=== PATIENT | female | born 2000 | race Caucasian/White ===

== ENCOUNTER 2018-04-16 22:54 | Inpatient (IN) | payer BC ==
[~2018-04-16] VITALS: Ht 157.5 cm; Wt 63.3 kg
[2018-04-17 01:06] VITALS: Ht 157.5 cm; Wt 63.3 kg
[2018-04-17 02:02] VITALS: BP 109/65; PULSE 101; RESP 16
--- NOTE | 2018-04-17 02:27 | HP ---
Date/Time of Note Date/Time of Note DATE: 04/17/18 TIME: 02:19 Assessment/Plan VTE Prophylaxis Risk score (from Nsg)>0 risk: 6 SCD applied (from Nsg): No Pharmacological prophylaxis: heparin Lines/Catheters IV Catheter Type (from Nrsg): Saline Lock Assessment/Plan Assessment/Plan 17 yo female with no sig medical hx transferred from [facility] for right ankle/foot pain 2/2 tibial fx s/p exercise related injury PLAN pain mgmt Ortho consult additional imaging as needed/per Ortho HPI/ROS Admit Date/Time Admit Date/Time Apr 17, 2018 at 00:18 Hx of Present Illness This is a 17 yo female with no sig medical hx who initially presented to [facility] c/o right ankle pain. She injured herself while [place]whe[place]. Xray showed right tibial fx. fluid/ankle was straightened/suggested and is currently wrapped. She was transferred to [facility] for insurance reasons. . PMH/Family/Social Past Medical History Medical History: other (See HPI) Coded Allergies: No Known Allergy (Unverified , 04/17/18) Past Surgical History Past Surgical Hx: other (See HPI) Family History Significant Family History: no pertinent family hx (See HPI) Social History Alcohol Use: none Smoking Status: Unknown if ever smoked Drug Use: none Exam/Review of Systems Vital Signs Vitals Vital Signs Date Temp Pulse Resp B/P (MAP) Pulse Ox O2 O2 Flow FiO2 Time Delivery Rate 04/17/18 99.0 101 16 109/65 95 02:02 (80) Exam Constitutional: alert, oriented, well developed Head: normocephalic, atraumatic Eyes: EOMI, PERRL Respiratory: clear to auscultation, normal air movement Cardiovascular: regular rate and rhythm, nl pulses Gastrointestinal: soft, non-tender Extremities: other (Right lower extremity is wrapped. Sensation intact on her toes and she is able to wiggle them without any problem) Medications Medications Current Medications IV Flush (NS 3 ml) 3 ml PER PROTOCOL IV ; Start 04/17/18 at 02:30; Status UNV Ondansetron HCl (Zofran Inj) 4 mg Q6H PRN IV NAUSEA AND/OR VOMITING; Start 04/17/18 at 02:30; Status UNV Acetaminophen (Tylenol Tab) 650 mg Q6H PRN PO PAIN LEVEL 1-3 OR FEVER; Start 04/17/18 at 02:30; Status UNV Acetaminophen/ Hydrocodone Bitart ([place] (5/325)) 1 tab Q6H PRN PO MODERATE PAIN LEVEL 4-6; Start 04/17/18 at 02:30; Status UNV Acetaminophen/ Hydrocodone Bitart ([place] (5/325)) 2 tab Q6H PRN PO SEVERE PAIN LEVEL 7-10; Start 04/17/18 at 02:30; Status UNV Heparin Sodium (Porcine) (Heparin (5000 Units/1ml)) 5,000 unit Q12 SC ; Start 04/17/18 at 09:00; Status UNV TIGRE MONTANO MD Apr 17, 2018 02:27
[2018-04-17] MEDS ORDERED: ONDANSETRON 4 MG INJ IV PRN (02:30)
[2018-04-17] MEDS ORDERED: NACL 0.9% 3 ML SYG IV SCH (02:30)
[2018-04-17] MEDS: ACETAMINOPHEN 325 MG TAB PO PRN ×2 (03:16→14:10)
[2018-04-17 08:00] VITALS: BP 98/54; PULSE 97; RESP 17
[2018-04-17] MEDS: HYDROCODONE/APAP (5/325) TAB PO PRN ×2 (09:05→19:35)
[2018-04-17] MEDS: HEPARIN 5,000 UNIT/1 ML VIAL SC SCH ×2 (09:06→23:14)
[2018-04-17] MEDS ORDERED: POTASSIUM CHLORIDE (SR) 20 MEQ TAB PO STA (10:34)
--- NOTE | 2018-04-17 10:54 | PN ---
Date/Time of Note Date/Time of Note DATE: 04/17/18 TIME: 10:51 Assessment/Plan VTE Prophylaxis Risk score (from Ns)>0 risk: 6 SCD applied (from Ns): No SCD contraindicated: other Pharmacological prophylaxis: heparin Lines/Catheters IV Catheter Type (from [facility]): Saline Lock Assessment/Plan Hospital Course SUBJECTIVE: Right foot pain well controlled. OBJECTIVE: Physical Exam General: Adequately build 17 year-old female lying in bed in no apparent distress. HEENT: Normocephalic, atraumatic. Eyes: Anicteric sclerae, conjunctivae clear. ENT: Nasal septum midline, oral mucosa moist. Neck supple, no JVD noticed. Respiratory: Bilaterally clear breath sounds. No use of accessory muscles of respiration. No adventitious breath sounds. Cardiovascular: S1, S2 heard. Regular rate and rhythm. Abdomen: Soft, nontender, and nondistended. Bowel sounds positive in all 4 quadrants. Genitourinary: Deferred. Extremities: No cyanosis, no clubbing. Right leg in a long dressing to the mid femur level. Able to move toes on the right foot. Neurologic: Cranial nerves II through XII grossly intact. The patient is awake, alert, and oriented. Skin: Abrasion in the right elbow area. Labs & Vitals per chart ASSESSMENT & PLAN 17-year-old female who denies any significant past medical history who initially went to [facility] emergency room with right foot pain after she had an exercise related injury. X-ray of the right foot at [facility] emergency room showed trimalleolar fracture. The ER physician tried manipulative reduction with a repeat x-ray showing alignment of the fracture with soft tissue swelling. The patient was transferred to [facility] for further evaluation because of insurance reasons. 1. Trimalleolar fracture of the right foot. -Continue pain control. -Nonweightbearing of the right lower extremity. -Orthopedic surgery evaluation has been obtained. 2. Leukocytosis. -Most probably reactive in origin. -Monitor. 3. Fluids, electrolytes, and nutrition. -N.p.o. except for medications in anticipation for orthopedic surgery intervention. -IV fluids. 4. DVT prophylaxis. Subcutaneous heparin. 5.-Plan. -Continue pain control. -Nonweightbearing of the right lower extremity. -Await orthopedic surgery evaluation. -Replete potassium. The patient was seen in collaboration with Dr. Gary. Exam/Review of Systems Vital Signs Vitals Vital Signs Date Temp Pulse Resp B/P (MAP) Pulse Ox O2 O2 Flow FiO2 Time Delivery Rate 04/17/18 98.4 97 17 98/54 (69) 100 Room Air 08:00 Intake and Output 04/16/18 04/16/18 04/17/18 1515:00 23:00 07:00 IntakeIntake Total 300 ml BalanceBalance 300 ml KAYE MILES [employer] PAINTER Apr 17, 2018 10:54
[2018-04-17] MEDS: SOD CHLORIDE 0.9% 1,000 ML IV SCH (11:38)
[2018-04-17 14:00] VITALS: BP 103/59; PULSE 100; RESP 18
--- NOTE | 2018-04-17 18:49 | NUR ---
End of shift report Pain medications ([place] 5/325 1 tab and Tylenol 650mg 1 tab) given once each and effective. Positive drug screening result reported to JOSE Wadsworth. Pt in stable condition. Will continue to monitor. Addendum: 04/17/18 at 1859 by LAURA PEREIRA RN Spoke with Dr. Cobian over the phone. NPO after midnight, ok to eat now. MD will visit pt tomorrow around noon time. No supplies to be collected prior to MD arrival.
[2018-04-17 19:24] VITALS: BP 108/68; PULSE 109; RESP 16
[2018-04-17] MEDS ORDERED: ZOLPIDEM 5 MG TAB PO PRN (21:00)
[2018-04-18] MEDS: SOD CHLORIDE 0.9% 1,000 ML IV SCH ×3 (00:17→19:35)
[2018-04-18 02:01] VITALS: BP 103/64; PULSE 100; RESP 16
[2018-04-18] MEDS: HYDROCODONE/APAP (5/325) TAB PO PRN ×2 (03:42→11:15)
--- NOTE | 2018-04-18 06:27 | NUR ---
ASLEEP RESTING COMFORTABLY IN BED. NO ACUTE CHANGES OVERNIGHT. ALL DUE MEDS GIVEN AND TOLERATED WELL. PAIN MEDICATION ADMINISTERED NEEDED AND EFFECTIVE. HOURLY ROUNDING DONE. PT CONTINUES ON NPO STATUS. ALL NEEDS. ATTENDED. CALL LIGHT WITHIN EASY REACH. WILL ENDORSE TO NEXT SHIFT.
[2018-04-18 07:56] VITALS: BP 96/56; PULSE 101; RESP 16
[2018-04-18] MEDS: HEPARIN 5,000 UNIT/1 ML VIAL SC SCH (10:19)
--- NOTE | 2018-04-18 10:28 | NUR ---
Spoke with Dr Cobian surgery will most likely be tomorrow due to staffing, continue to give heparin and place back on diet
--- NOTE | 2018-04-18 12:38 | CONS ---
DATE OF ADMISSION: 04/17/2018 DATE OF CONSULTATION: 04/18/2018 TYPE OF CONSULTATION: Orthopedic surgical. HISTORY OF PRESENT ILLNESS: The patient is a 17-year-old female who was transferred in from [facility] on 04/17/2018 because of the insurance arrangement. She obviously showed up in th e emergency room of [facility] because of the painful swelling and limit of motion in volving her right ankle which developed following her injury during . According to the patient, there was some type of manipulation done in the emergency room of [facility] which w as followed by immobilization in a splint. PHYSICAL EXAMINATION: GENERAL: My examination revealed a 17-year-old female who is not in any acute distress at this time. EXTREMITIES: Her right lower extremity was immobilized in a short leg posterior splint. There were no signs of neurovascular compromise involving the toes. DIAGNOSTIC STUDIES: X-rays of the right ankle available in the CD of the x-rays transferred in with the patient showed a rather unusual fractures involving the distal end of the right tibia which seems to involve the joint itself. IMPRESSION: Possible plafond fracture involving the right ankle joint. TREATMENT PLAN: 1. Obtain additional information including CT scan of the right ankle and repeated x-rays of the rig ht ankle in the splint. 2. Further treatment plan pending on the outcome of additional diagnostic studies. Dictated By: ZACH VIGIL/ARTURO Conf#: [id number] DID#: [id number] CC: TIGRE MONTANO MD;*EndCC*
[2018-04-18 13:52] VITALS: BP 103/53; PULSE 92; RESP 16
--- NOTE | 2018-04-18 15:19 | PN ---
Date/Time of Note Date/Time of Note DATE: 04/18/18 TIME: 15:18 Assessment/Plan VTE Prophylaxis Risk score (from Nsg)>0 risk: 4 SCD applied (from Nsg): No SCD contraindicated: other Pharmacological prophylaxis: heparin Lines/Catheters IV Catheter Type (from Nrsg): Peripheral IV Assessment/Plan Hospital Course SUBJECTIVE: Right foot pain well controlled. OBJECTIVE: Physical Exam General: Adequately build 17 year-old female lying in bed in no apparent distress. HEENT: Normocephalic, atraumatic. Eyes: Anicteric sclerae, conjunctivae clear. ENT: Nasal septum midline, oral mucosa moist. Neck supple, no JVD noticed. Respiratory: Bilaterally clear breath sounds. No use of accessory muscles of respiration. No adventitious breath sounds. Cardiovascular: S1, S2 heard. Regular rate and rhythm. Abdomen: Soft, nontender, and nondistended. Bowel sounds positive in all 4 quadrants. Genitourinary: Deferred. Extremities: No cyanosis, no clubbing. Right leg in a long dressing to the mid femur level. Able to move toes on the right foot. Neurologic: Cranial nerves II through XII grossly intact. The patient is awake, alert, and oriented. Skin: Abrasion in the right elbow area. Labs & Vitals per chart ASSESSMENT & PLAN 17-year-old female who denies any significant past medical history who initially went to [facility] emergency room with right foot pain after she had an exercise related injury. X-ray of the right foot at [facility] emergency room showed trimalleolar fracture. The ER physician tried ma nipulative reduction with a repeat x-ray showing alignment of the fracture with soft tissue swelling. The patient was transferred to [facility] for further evaluation because of insurance reasons. 1. Trimalleolar fracture of the right foot. -Continue pain control. -Nonweightbearing of the right lower extremity. -Orthopedic surgery evaluation ongoing. -Pending right lower extremity CT scan. 2. Leukocytosis. -Most probably reactive in origin. -Resolved. 3. Fluids, electrolytes, and nutrition. -Regular diet. -IV fluids. 4. DVT prophylaxis. -Subcutaneous heparin. 5.-Plan. -Continue pain control. -Nonweightbearing of the right lower extremity. -Await further orthopedic surgery recommendations. -Replete potassium. The patient was seen in collaboration with Dr. Gary. Result Diagram: 04/18/18 0459 04/18/18 0459 Results 24hrs Laboratory Tests Test 04/18/18 04:59 White Blood Count 8.9 # Red Blood Count 3.72 L Hemoglobin 11.4 L Hematocrit 34.8 L Mean Corpuscular Volume 93.5 Mean Corpuscular Hemoglobin 30.6 Mean Corpuscular Hemoglobin Concent 32.8 Red Cell Distribution Width 11.7 Platelet Count 260 Mean Platelet Volume 10.2 Immature Granulocytes % 0.400 Neutrophils % 62.1 Lymphocytes % 26.4 Monocytes % 9.9 Eosinophils % 0.9 Basophils % 0.3 Nucleated Red Blood Cells % 0.0 Immature Granulocytes # 0.040 H Neutrophils # 5.5 Lymphocytes # 2.4 Monocytes # 0.9 Eosinophils # 0.1 Basophils # 0.0 Nucleated Red Blood Cells # 0.0 Prothrombin Time 13.2 Prothrombin Time Ratio 1.0 INR International Normalized Ratio 0.99 Activated Partial Thromboplast Time 32.6 Sodium Level 142 Potassium Level 3.7 Chloride Level 104 Carbon Dioxide Level 26 Anion Gap 12 Blood Urea Nitrogen 11 Creatinine 0.57 Est Glomerular Filtrat Rate mL/min > 60 Glucose Level 89 Calcium Level 8.9 Phosphorus Level 3.7 Magnesium Level 2.0 Exam/Review of Systems Vital Signs Vitals Vital Signs Date Temp Pulse Resp B/P (MAP) Pulse Ox O2 O2 Flow FiO2 Time Delivery Rate 04/18/18 99.1 92 16 103/53 96 Room Air 13:52 (70) Intake and Output 04/17/18 04/17/18 04/18/18 1515:00 23:00 07:00 IntakeIntake Total 720 ml 1400 ml BalanceBalance 720 ml 1400 ml Medications Medications Current Medications IV Flush (NS 3 ml) 3 ml PER PROTOCOL IV Last administered on 04/17/18at 03:15; Admin Dose 3 ML; Start 04/17/18 at 02:30 Ondansetron HCl (Zofran Inj) 4 mg Q6H PRN IV NAUSEA AND/OR VOMITING; Start 04/17/18 at 02:30 Acetaminophen (Tylenol Tab) 650 mg Q6H PRN PO PAIN LEVEL 1-3 OR FEVER Last administered on 04/17/18at 14:10; Admin Dose 650 MG; Start 04/17/18 at 02:30 Acetaminophen/ Hydrocodone Bitart ([place] (5/325)) 1 tab Q6H PRN PO MODERATE PAIN LEVEL 4-6 Last administered on 04/17/18at 19:35; Admin Dose 1 TAB; Start 04/17/18 at 02:30 Acetaminophen/ Hydrocodone Bitart ([place] (5/325)) 2 tab Q6H PRN PO SEVERE PAIN LEVEL 7-10 Last administered on 04/18/18 11:15; Admin Dose 2 TAB; Start 04/17/18 at 02:30 Heparin Sodium (Porcine) (Heparin (5000 Units/1ml)) 5,000 unit Q12 SC Last administered on 04/18/18at 10:19; Admin Dose 5,000 UNIT; Start 04/17/18 at 09:00 Sodium Chloride 1,000 ml @ 75 mls/hr [id number] IV Last administered on 04/18/18at 00:17; Admin Dose 75 MLS/HR; Start 04/17/18 at 11:00 Zolpidem Tartrate (Ambien) 5 mg HS PRN PO INSOMNIA; Start 04/17/18 at 21:00 KAYE MILES NP Apr 18, 2018 15:19
--- NOTE | 2018-04-18 19:27 | NUR ---
End of Shift Notes Relayed CT scan results to Dr Aranza MD is requesting 3D reformation of image, CT made aware. Placed on NPO for possible sx tomorrow, patient made aware. All needs attended to hourly roundings done, fall precautionsin place
[2018-04-18 19:54] VITALS: BP 116/71; PULSE 107; RESP 16
[2018-04-19 01:22] VITALS: BP 109/64; PULSE 98; RESP 16
[2018-04-19] MEDS: HYDROCODONE/APAP (5/325) TAB PO PRN (01:42)
[2018-04-19] MEDS: SOD CHLORIDE 0.9% 1,000 ML IV SCH ×3 (01:55→19:30)
--- NOTE | 2018-04-19 06:12 | NUR ---
EOSS: Patient remains stable. No s/s of SOB noted. Complained of back pain due to laying down for a long time, medicated with pain medication with good relief. Nothing by mouth status still maintained. No other complaints at this time. Will endorse to morning nurse for continuity of care.
[2018-04-19 07:28] VITALS: BP 100/58; PULSE 82; RESP 18
--- NOTE | 2018-04-19 13:05 | RADRPT ---
Vent Rate: 85 bpm RR Interval: 0 msec NV Interval: 112 msec QRS Duration: 86 msec QT Interval: 356 msec QTC Interval: 423 msec P-R-T [place]: 38 - 72 - 34 degrees Normal sinus rhythm Normal ECG Electronically Signed By: Gabriel Gutierrez [id number]
[2018-04-19 14:00] VITALS: BP 109/67; PULSE 91; RESP 18
--- NOTE | 2018-04-19 14:46 | PN ---
Date/Time of Note Date/Time of Note DATE: 04/19/18 TIME: 14:45 Assessment/Plan VTE Prophylaxis Risk score (from Nsg)>0 risk: 5 SCD applied (from Ns): No SCD contraindicated: other Pharmacological prophylaxis: heparin Lines/Catheters IV Catheter Type [facility]from [facility]): Saline Lock Urinary Cath still in place: No Assessment/Plan Hospital Course SUBJECTIVE: Right foot pain well controlled. OBJECTIVE: Physical Exam General: Adequately build 17 year-old female lying in bed in no apparent distress. HEENT: Normocephalic, atraumatic. Eyes: Anicteric sclerae, conjunctivae clear. ENT: Nasal septum midline, oral mucosa moist. Neck supple, no JVD noticed. Respiratory: Bilaterally clear breath sounds. No use of accessory muscles of respiration. No adventitious breath sounds. Cardiovascular: S1, S2 heard. Regular rate and rhythm. Abdomen: Soft, nontender, and nondistended. Bowel sounds positive in all 4 quadrants. Genitourinary: Deferred. Extremities: No cyanosis, no clubbing. Right leg in a long dressing to the mid femur level. Able to move toes on the right foot. Neurologic: Cranial nerves II through XII grossly intact. The patient is awake, alert, and oriented. Skin: Abrasion in the right elbow area. Labs & Vitals per chart ASSESSMENT & PLAN 17-year-old female who denies any significant past medical history who initially went to [facility] emergency room with right foot pain after she had an exercise related injury. X-ray of the right foot at [facility] emergency room showed trimalleolar fracture. The ER physician tried manipulative reduction with a repeat x-ray showing alignment of the fracture with soft tissue swelling. The patient was transferred to [facility] for further evaluation because of insurance reasons. 1. Trimalleolar fracture of the right foot. -Continue pain control. -Nonweightbearing of the right lower extremity. -Orthopedic surgery evaluation ongoing. -Plan for surgical intervention. 2. Leukocytosis. -Most probably reactive in origin. -Resolved. 3. Fluids, electrolytes, and nutrition. -Regular diet. -IV fluids. 4. DVT prophylaxis. -Subcutaneous heparin. 5.-Plan. -Continue pain control. -Nonweightbearing of the right lower extremity. -Await orthopedic surgery intervention. The patient was seen in collaboration with Dr. Gary. Result Diagram: 04/18/18 0459 04/18/18 0459 Exam/Review of Systems Vital Signs Vitals Vital Signs Date Temp Pulse Resp B/P (MAP) Pulse Ox O2 O2 Flow FiO2 Time Delivery Rate 04/19/18 94.4 82 18 100/58 96 Room Air 07:28 (72) Intake and Output 04/18/18 04/18/18 04/19/18 1515:00 23:00 07:00 IntakeIntake Total 960 ml 1030 ml 1000 ml BalanceBalance 960 ml 1030 ml 1000 ml Medications Medications Current Medications IV Flush (NS 3 ml) 3 ml PER PROTOCOL IV Last administered on 04/17/18at 03:15; Admin Dose 3 ML; Start 04/17/18 at 02:30 Ondansetron HCl (Zofran Inj) 4 mg Q6H PRN IV NAUSEA AND/OR VOMITING; Start 04/17/18 at 02:30 Acetaminophen (Tylenol Tab) 650 mg Q6H PRN PO PAIN LEVEL 1-3 OR FEVER Last administered on 04/17/18at 14:10; Admin Dose 650 MG; Start 04/17/18 at 02:30 Acetaminophen/ Hydrocodone Bitart ([place] (5/325)) 1 tab Q6H PRN PO MODERATE PAIN LEVEL 4-6 Last administered on 04/19/18at 01:42; Admin Dose 1 TAB; Start 04/17/18 at 02:30 Acetaminophen/ Hydrocodone Bitart ([place] (5/325)) 2 tab Q6H PRN PO SEVERE PAIN LEVEL 7-10 Last administered on 04/18/18at 11:15; Admin Dose 2 TAB; Start 04/17 at 02:30 Heparin Sodium (Porcine) (Heparin (5000 Units/1ml)) 5,000 unit Q12 SC Last administered on 04/18/18at 10:19; Admin Dose 5,000 UNIT; Start 04/17/18 at 09:00; Status Hold Sodium Chloride 1,000 ml @ 75 mls/hr [id number] IV Last administered on 04/19/18at 05:44; Admin Dose 75 MLS/HR; Start 04/17/18 at 11:00 Zolpidem Tartrate (Ambien) 5 mg HS PRN PO INSOMNIA; Start 04/17/18 at 21:00 KAYE MILES NP Apr 19, 2018 14:46
--- NOTE | 2018-04-19 19:04 | NUR ---
EOSS: Patient is in bed with right ankle elevated with pillows. PT has not c/o pain or discomfort. PT is a/o x4, had dinner and will be NPO after midnight for surgery with . Educational handouts printed on orif and handed to patient, consent to sign is pending. Bed alarm on, call light within reach. Endorsed to fast food shift lead.
[2018-04-19 19:44] VITALS: BP 115/62; PULSE 99; RESP 16
[2018-04-19] MEDS: POLYETHYLENE GLYCOL 17 GM PACKET PO SCH (21:00)
[2018-04-20] VITALS (29 sets, daily range): BP systolic 81–176; BP diastolic 52–94; PULSE 86–152; RESP 12–30
--- NOTE | 2018-04-20 04:57 | NUR ---
EOSS: Patient remains stable. NPO since midnight for upcoming procedure with Dr. Cobian. Consent still pending as patient wish to speak with Dr. Cobian first before signing. No other complaints at this time. Will endorse to morning nurse for continuity of care.
[2018-04-20] MEDS: SOD CHLORIDE 0.9% 1,000 ML IV SCH ×3 (05:25→21:20)
[2018-04-20] MEDS ORDERED: DESFLURANE 15 MIN ONE (07:00)
[2018-04-20] MEDS: POLYETHYLENE GLYCOL 17 GM PACKET PO SCH ×2 (09:00→21:00)
--- NOTE | 2018-04-20 11:57 | PN ---
Date/Time of Note Date/Time of Note DATE: 04/20/18 TIME: 11:55 Assessment/Plan VTE Prophylaxis Risk score (from Nsg)>0 risk: 8 SCD applied (from Ns): No SCD contraindicated: other Pharmacological prophylaxis: heparin Lines/Catheters IV Catheter Type (from [facility]): Saline Lock Urinary Cath still in place: No Assessment/Plan Hospital Course SUBJECTIVE: Right foot pain well controlled. OBJECTIVE: Physical Exam General: Adequately build 17 year-old female lying in bed in no apparent distress. HEENT: Normocephalic, atraumatic. Eyes: Anicteric sclerae, conjunctivae clear. ENT: Nasal septum midline, oral mucosa moist. Neck supple, no JVD noticed. Respiratory: Bilaterally clear breath sounds. No use of accessory muscles of respiration. No adventitious breath sounds. Cardiovascular: S1, S2 heard. Regular rate and rhythm. Abdomen: Soft, nontender, and nondistended. Bowel sounds positive in all 4 quadrants. Genitourinary: Deferred. Extremities: No cyanosis, no clubbing. Right leg in a long dressing to the mid femur level. Able to move toes on the right foot. Neurologic: Cranial nerves II through XII grossly intact. The patient is awake, alert, and oriented. Skin: Abrasion in the right elbow area. Labs & Vitals per chart ASSESSMENT & PLAN 17-year-old female who denies any significant past medical history who initially went to [facility] emergency room with right foot pain after she had an exercise related injury. X-ray of the right foot at [facility] emergency room showed trimalleolar fracture. The ER physician tried manipulative reduction with a repeat x-ray showing alignment of the fracture with soft tissue swelling. The patient was transferred to [facility] for further evaluation because of insurance reasons. 1. Trimalleolar fracture of the right foot. -Continue pain control. -Nonweightbearing of the right lower extremity. -Orthopedic surgery evaluation ongoing. -Plan for surgical intervention. 2. Leukocytosis. -Most probably reactive in origin. -Resolved. 3. Fluids, electrolytes, and nutrition. -Regular diet. -IV fluids. 4. DVT prophylaxis. -Subcutaneous heparin. 5.-Plan. -Continue pain control. -Nonweightbearing of the right lower extremity. -Await orthopedic surgery intervention. Perioperative risk stratification. This is a 17-year-old female with no significant comorbidities. The patient has a low risk for any perioperative medical complications. Given that, the benefits of the orthopedic surgical intervention for correction of her trimalleolar fracture would outweigh the risks from any untoward medical problems that may arise perioperatively. The patient was seen in collaboration with Dr. Gary. Result Diagram: 04/20/189 04/20/18428 Results 24hrs Laboratory Tests Test 04/20/18 04:29 White Blood Count 9.4 Red Blood Count 3.76 L Hemoglobin 11.8 L Hematocrit 34.9 L Mean Corpuscular Volume 92.8 Mean Corpuscular Hemoglobin 31.4 Mean Corpuscular Hemoglobin Concent 33.8 Red Cell Distribution Width 11.6 Platelet Count 304 Mean Platelet Volume 10.1 Immature Granulocytes % 0.300 Neutrophils % 59.3 Lymphocytes % 29.4 Monocytes % 8.9 Eosinophils % 1.6 Basophils % 0.5 Nucleated Red Blood Cells % 0.0 Immature Granulocytes # 0.030 Neutrophils # 5.6 Lymphocytes # 2.8 Monocytes # 0.8 Eosinophils # 0.2 Basophils # 0.1 Nucleated Red Blood Cells # 0.0 Sodium Level 139 Potassium Level 3.8 Chloride Level 105 Carbon Dioxide Level 26 Anion Gap 8 Blood Urea Nitrogen 9 Creatinine 0.58 Est Glomerular Filtrat Rate mL/min > 60 Glucose Level 89 Calcium Level 9.2 Phosphorus Level 4.0 Magnesium Level 2.1 Exam/Review of Systems Vital Signs Vitals Vital Signs Date Temp Pulse Resp B/P (MAP) Pulse Ox O2 O2 Flow FiO2 Time Delivery Rate 04/20/18 98.3 87 14 102/60 97 07:31 (74) 04/19/18 Room Air 14:00 Intake and Output 04/19/18 04/19/18 04/20/18 1515:00 23:00 07:00 IntakeIntake Total 1950 ml 0 ml BalanceBalance 1950 ml 0 ml Medications Medications Current Medications IV Flush (NS 3 ml) 3 ml PER PROTOCOL IV Last administered on 04/17/18at 03:15; Admin Dose 3 ML; Start 04/17/18 at 02:30 Ondansetron HCl (Zofran Inj) 4 mg Q6H PRN IV NAUSEA AND/OR VOMITING; Start 04/17/18 at 02:30 Acetaminophen (Tylenol Tab) 650 mg Q6H PRN PO PAIN LEVEL 1-3 OR FEVER Last administered on 04/17/18 14:10; Admin Dose 650 MG; Start 04/17/18 at 02:30 Acetaminophen/ Hydrocodone Bitart ([place] (5/325)) 1 tab Q6H PRN PO MODERATE PAIN LEVEL 4-6 Last administered on 04/19/18 01:42; Admin Dose 1 TAB; Start 04/17/18 at 02:30 Acetaminophen/ Hydrocodone Bitart ([place] (5/325)) 2 tab Q6H PRN PO SEVERE PAIN LEVEL 7-10 Last administered on 04/18/18 11:15; Admin Dose 2 TAB; Start 04/17/18 at 02:30 Heparin Sodium (Porcine) (Heparin (5000 Units/1ml)) 5,000 unit Q12 SC Last administered on 04/18/18 10:19; Admin Dose 5,000 UNIT; Start 04/17/18 at 09: 00; Status Hold Sodium Chloride 1,000 ml @ 75 mls/hr [id number] IV Last administered on 04/20/18at 09:56; Admin Dose 75 MLS/HR; Start 04/17/18 at 11:00 Zolpidem Tartrate (Ambien) 5 mg HS PRN PO INSOMNIA; Start 04/17/18 at 21:00 Polyethylene Glycol (Miralax) 17 gm BID PO ; Start 04/19/18 at 21:00 KAYE MILES NP Apr 20, 2018 11:57
[2018-04-20] MEDS ORDERED: POLYMYXIN/BACITRACIN 1L IRRIG ONE (15:36)
--- NOTE | 2018-04-20 15:45 | PREAC ---
Date/Time of Note Date/Time of Note DATE: 04/20/18 TIME: 15:44 Anesthesia Eval and Record Evaluation Time Pre-Procedure Interview DATE: 04/20/18 TIME: 15:44 Age 17 Sex female NPO: 8 hrs Preoperative diagnosis RIGHT ANKLE TRIMALLEOLAR FRACTURE Planned procedure ORIF RIGHT ANKLE TRIMALLEOLAR FRACTURE Past Medical History Past Medical History: None Surgery & Anesthesia Issues No known issue Meds Anticoagulation: No Beta Loraine within 24 hr: No Reason Beta Loraine not given: Pt. not on B-Loraine Current Medications IV Flush (NS 3 ml) 3 ml PER PROTOCOL IV Last administered on 04/17/18at 03:15; Admin Dose 3 ML; Start 04/17/18 at 02:30 Ondansetron HCl (Zofran Inj) 4 mg Q6H PRN IV NAUSEA AND/OR VOMITING; Start 04/17/18 at 02:30 Acetaminophen (Tylenol Tab) 650 mg Q6H PRN PO PAIN LEVEL 1-3 OR FEVER Last administered on 04/17/18at 14:10; Admin Dose 650 MG; Start 04/17/18 at 02:30 Acetaminophen/ Hydrocodone Bitart ([place] (5/325)) 1 tab Q6H PRN PO MODERATE PAIN LEVEL 4-6 Last administered on 04/19/18at 01:42; Admin Dose 1 TAB; Start 04/17/18 at 02:30 Acetaminophen/ Hydrocodone Bitart ([place] (5/325)) 2 tab Q6H PRN PO SEVERE PAIN LEVEL 7-10 Last administered on 04/18/18at 11:15; Admin Dose 2 TAB; Start 04/17/18 at 02:30 Heparin Sodium (Porcine) (Heparin (5000 Units/1ml)) 5,000 unit Q12 SC Last administered on 04/18/18at 10:19; Admin Dose 5,000 UNIT; Start 04/17/18 at 09:00; Status Hold Sodium Chloride 1,000 ml @ 75 mls/hr [id number] IV Last administered on 04/20/18at 09:56; Admin Dose 75 MLS/HR; Start 04/17/18 at 11:00 Zolpidem Tartrate (Ambien) 5 mg HS PRN PO INSOMNIA; Start 04/17/18 at 21:00 Polyethylene Glycol (Miralax) 17 gm BID PO ; Start 04/19/18 at 21:00 Meds reviewed: Yes Allergies Coded Allergies: No Known Allergy (Unverified , 04/17/18) Allergies Reviewed: Yes Labs/Studies Labs Reviewed: Reviewed by anesthesiologist Result Diagram: 04/20/18 0429 04/20/18 0429 Laboratory Tests 04/20/18 04:29 test: Negative Pre-procedure Exam Last vitals Vital Signs Date Temp Pulse Resp B/P (MAP) Pulse Ox O2 O2 Flow FiO2 Time Delivery Rate 04/20/18 99.0 86 18 112/66 100 15:42 (81) 04/19/18 Room Air 14:00 Airway: Adequate mouth opening, Adequate thyromental dist Mallampati: Mallampati II Teeth: Normal Lung: Normal Heart: Normal ASA Physical Status ASA physical status: 1 Emergency: None Planned Anesthetic General/MAC: ETT Nerve block: Femoral (right), Sciatic (right) Pre-operative Attestations Prior to commencing anesthesia and surgery, the patient was re-evaluated, there was verification of: *The patient's identity *The results of appropriate recent lab work and preoperative vital signs *The above evaluation not changing prior to induction *Anesthetic plan, risk benefits, alternative and complications discussed with patient/family; questions answered; patient/family understands, accepts and wishes to proceed. Romulo Damico M.D. Apr 20, 2018 15:45
[2018-04-20] MEDS ORDERED: FENTAnyl 50 MCG/ML VIAL ONE (15:50)
[2018-04-20] MEDS ORDERED: DEXAMETHASONE 4 MG/ML 1 ML INJ ONE (15:50)
[2018-04-20] MEDS ORDERED: CEFAZOLIN 1 GM INJ ONE (15:50)
[2018-04-20] MEDS ORDERED: ROPIVACAINE 0.5 % 30 ML VIAL ONE ×2 (15:50→16:21)
[2018-04-20] MEDS ORDERED: ROCURONIUM 50 MG INJ ONE (15:50)
[2018-04-20] MEDS ORDERED: NEOSTIGMINE 3 MG/3 ML SYRINGE ONE (15:50)
[2018-04-20] MEDS ORDERED: ONDANSETRON 4 MG INJ ONE (15:50)
[2018-04-20] MEDS ORDERED: PROPOFOL 20 ML ONE (15:50)
[2018-04-20] MEDS ORDERED: MIDAZOLAM 1 MG/ML 2 ML INJ ONE ×3 (15:50→17:17)
[2018-04-20] MEDS ORDERED: GLYCOPYRROLATE 0.4 MG INJ ONE (15:50)
[2018-04-20] MEDS ORDERED: ONDANSETRON 4 MG INJ IV PRN (16:00)
[2018-04-20] MEDS ORDERED: EPHEDrine SULFATE 50 MG/5 ML SYG IV PRN (16:00)
[2018-04-20] MEDS ORDERED: hydrALAzine 20 MG INJ IV PRN (16:00)
[2018-04-20] MEDS ORDERED: DIPHENHYDRAMINE 50 MG INJ IV PRN (16:00)
[2018-04-20] MEDS ORDERED: FENTAnyl 50 MCG/ML VIAL IV PRN ×2 (16:00)
[2018-04-20] MEDS ORDERED: HYDROmorphONE 1 MG/5 ML IV SYRINGE IV PRN ×3 (16:00)
[2018-04-20] MEDS ORDERED: LABETALOL HCL 20MG INJ IV PRN (16:00)
[2018-04-20] MEDS ORDERED: MIDAZOLAM 1 MG/ML 2 ML INJ IV PRN (16:00)
[2018-04-20] MEDS ORDERED: ALBUTEROL 0.083% (NEB) 2.5 MG/3 ML AMP HHN PRN (16:00)
[2018-04-20] MEDS ORDERED: IPRATROPIUM (NEB) 0.5 MG/2.5 ML AMP HHN PRN (16:00)
[2018-04-20] MEDS ORDERED: TRIMETHOBENZAMIDE 100 MG/ML VIAL IM PRN (16:00)
[2018-04-20] MEDS ORDERED: OXYCODONE/ACETAMINOPHEN (5/325) TAB PO PRN ×2 (16:00)
[2018-04-20] MEDS ORDERED: MEPERIDINE 25 MG INJ IV PRN (16:00)
[2018-04-20] MEDS ORDERED: PHENYLephrine (100 MCG/ML) 5ML SYG ONE ×2 (16:36→17:46)
[2018-04-20] MEDS ORDERED: PHENYLephrine 10 MG INJ ONE (16:36)
[2018-04-20] MEDS ORDERED: FUROSEMIDE 20 MG INJ ONE ×2 (17:10→17:24)
[2018-04-20] MEDS ORDERED: NORepinephrine 8MG/250 ML (PMX 250 ML IV STA (17:36)
[2018-04-20] MEDS: FENTAnyl 50 MCG/ML VIAL IV PRN ×2 (18:30→20:28)
--- NOTE | 2018-04-20 18:30 | NUR ---
Pt Admitted to ICU S/P Code Blue in the OR; Pt schedule for Rt ankle surgery; procedure not perform as pt presented with unstable heart rhythm after anesthesia induction. Pls refer to Dr Hill (anesthesia) notes for further detail. Pt currently intubated upon arrival to ICU; Transducing Cuca and CVP; will follow up post op orders; Yao GARCIA and Dr Hill spoke to family regarding intra op event. Cont to monitor at this time;
--- NOTE | 2018-04-20 18:32 | NUR ---
EOSS: Patient went down for surgery at 1500, family was at bedside. Accompanied patient. Patient is a/ox4, no c/o pain or discomfort before leaving for surgery. Belonging were left in patients room, was endorsed that patient was transferred to ICU, will send belonging to patients new room and call to give report.
--- NOTE | 2018-04-20 19:00 | EN ---
Date/Time of Note Date/Time of Note DATE: 04/20/18 TIME: 19:00 Event Note Medicine Medicine Event Note The patient was taken to the OR on 04/20/2018 for ORIF of the right trimalleolar fracture. The patient got intubated in the OR and was given a nerve block. The patient suddenly started desaturating with EtCO2 trending down. The patient also became hypotensive and bradycardiac. Hence, anesthesia was reversed and the OR team started chest compression and 2 doses of epinephrine was given. The patient continued to desaturate for a few minutes as per anesthesiologist until the saturation came up to appropriate levels. The patient had a right IJ central line placed and a right radial A-line placed. The patient was moved to the ICU once the patient was relatively stable. The surgery was aborted and no incisions were made. In the ICU, physical examination was as follows. General: Adequately build 17 year-old male lying in bed in no apparent distress. HEENT: Normocephalic, atraumatic. Eyes: Anicteric sclerae, conjunctivae clear. Pupils equal and sluggishly reacting to light. ENT: Nasal septum midline, oral mucosa is dry. ETT in place. JVD noticed. Right IJ TLC in place. Respiratory: Bilaterally diminished breath sounds. B/L rales. ETT to Vent. On 100% FiO2 with PEEP of 5. Cardiovascular: S1, S2 heard. Tachycardia. Abdomen: Soft, nontender, and nondistended. Genitourinary: Hoover catheter in place. Extremities: No cyanosis, no clubbing. Right lower extremity edema. Neurologic: The patient is somnolent. Skin: Normal skin turgor. No skin rashes. CXR done showed new extensive bilateral lung infiltrates. The patient was given 30 mg Lasix IV. Contacted the critical care vice president of operations physician and discussed the case with the on-call physician Dr. Paniagua. Dr. Paniagua recommended to repeat an ABG in 1 hour, to do stat bilateral lower extremity venous Doppler study and repeat chest x-ray in 1 hour. No therapeutic hypothermia indicated since the patient never lost her pulse or had any ventricular arrhythmias. The patient's family including the patient's mother, her brother, and sisters were informed about the complication happened along with the anesthesiologist Dr. Hills and the surgeon Dr. Cobian. The patient's current status, the treatment strategies, prognosis, etc. were updated. Case discussed with Dr. Gary. More than 60 minutes of critical care time spent on the care of this patient. KAYE MILES NP Apr 20, 2018 19:00
--- NOTE | 2018-04-20 19:27 | OPPN ---
Date/Time of Note Date/Time of Note DATE: 04/20/18 TIME: 18:42 Event Note Anesthesia note: Patient to OR for ORIF of the right ankle. Right popliteal nerve block was done under ultrasound guidance with no paresthesia and negative aspiration (for blood). Patient then was moved to the OR table and induced for anesthesia. I nduction was tolerated very well and surgeon started getting X rays of the ankle in preparation for the surgery. About 10-15 minutes after induction , ETCO2 suddenly started dropping from 40 down to 9 cm H2O and SPO2 started dropping to low 40s and then BP dropped to 50/33. I asked for crash cart and help and chest compressions started. I turned anesthesia gas off and with supportive management, patient started improving over the next 7-10 minutes. At this point my impression was a pulmonary emboli. Upon auscultation she had decreased breath sounds on the left. An a-line was placed and a Chest X Ray was done to rule out pneumothorax from the chest compressions. ICU bed was reserved and a right IJ central line was placed. At this point patient had developed frothy sputum in the ETT compatible with pulmonary edema/?ARDS. Patient was transported to ICU 109 and full sign out was given to Dr Paniagua and his PA Yao Lopez. I also updated the patients family multiple times during my stay in ICU. During this event patient remained in sinus rhythm the whole time with no runs of V tach, V fib or Asystole. Romulo Castaneda MD, M.D. Apr 20, 2018 19:27
[2018-04-20] MEDS ORDERED: FUROSEMIDE 40 MG INJ IV ONE (20:00)
[2018-04-20] MEDS: PROPOFOL 100 ML IV SCH (20:24)
[2018-04-21] VITALS (49 sets, daily range): BP systolic 74–128; BP diastolic 52–99; PULSE 101–148; RESP 15–27
--- NOTE | 2018-04-21 01:06 | CONS ---
DATE OF ADMISSION: 04/17/2018 DATE OF CONSULTATION: HISTORY OF PRESENT ILLNESS: The patient is 17 years old who has a right ankle fracture which was adm itted for open reduction and internal fixation. While the patient's preparation to surgery, she had an x-ray, intubated with sudden drop in her carbon dioxide from 40 to 9 and O2 to 40 and blood pressu re dropped to 50/33, in which the patient was resuscitated by the anesthesia team. The patient got i mproved, in which the patient was transferred to intensive care unit at room 119, in which I get a ca ll about her by Dr. Gunn as well as her family. PAST MEDICAL HISTORY: Unavailable. MEDICATIONS: None medications taken prior. PHYSICAL EXAMINATION: GENERAL: The patient is under propofol and intubation. When we turned the propofol down, the patien t can follow simple commands. She can recognize her father. CRANIAL NERVES: Cranial nerve II: Pupils are equal both sides, reactive to light. Cranial nerves I II, IV and : Extraocular muscles are intact without nystagmus. Cranial nerve V: Equal sensation to face. Cranial nerve VII: Symmetrical face. Cranial nerve VIII: Equal hearing bilaterally. [employer] nial nerve IX and X: Elevates palate. Cranial nerve XI: Elevates shoulder 5/5. Cranial nerve XII: With straight tongue. MOTOR: Moving both upper and lower extremities against gravity. Sensation, coordination and gait co uld not assess. HEART: Regular rate and rhythm. LUNGS: Equal breath sounds. ABDOMEN: Soft, relaxed, nondistended. No tenderness. ASSESSMENT AND PLAN: 1. The patient is 17 years old status post acute onset of unresponsiveness, possibility of underlyin g pulmonary embolus. Follow up the patient by pulmonary team for possible V/Q scan. 2. Possibility of underlying anoxic brain injury. Follow up the patient with electroencephalogram a s well as MRI over her brain when she is stable. 3. Right ankle fracture followed by Dr. Gunn. 4. The patient is right now under tracheal tube and ventilation. I counseled the family about her s tatus and I follow up the patient with her MRI as well as EEG. Again, thank you for asking me to see the patient with you. Dictated By: DAYNA JACOBO/NTS Conf#: [id number] DID#: [id number] CC: ZACH GUNN MD; TIGRE MONTANO MD;*[facility]*
[2018-04-21] MEDS ORDERED: FENTAnyl (DRIP) 1000 mcg/100mL 100 ML IV SCH (01:30)
[2018-04-21] MEDS: PROPOFOL 100 ML IV SCH (02:10)
--- NOTE | 2018-04-21 02:10 | PAC ---
Date/Time of Note Date/Time of Note DATE: 04/21/18 TIME: 02:07 Post-Anesthesia Notes Post-Anesthesia Note Last documented vital signs Vital Signs Date Temp Pulse Resp B/P (MAP) Pulse Ox O2 O2 Flow FiO2 Time Delivery Rate 04/21/18 125 20 100 70 01:59 04/20/18 95/88 (90) 23:00 04/20/18 97.1 18:37 04/20/18 Mechanical 18:35 Ventilator Activity: WNL Respiratory function: Other Cardiovascular function: WNL Mental status: Baseline Pain reasonably controlled: Yes Hydration appropriate: Yes Nausea/Vomiting absent: Yes Comments Patient seems to be improving per my discussion with SHANNAN Esteban. Will follow up with labs and management. Romulo Damico M.D. Apr 21, 2018 02:10
[2018-04-21] MEDS ORDERED: MAGNESIUM SULFATE 2 GM/50 ML 50 ML IVPB ONE (07:30)
[2018-04-21] MEDS: POLYETHYLENE GLYCOL 17 GM PACKET PO SCH ×2 (09:00→20:53)
[2018-04-21] MEDS ORDERED: FUROSEMIDE 20 MG INJ IV ONE ×2 (09:30→18:30)
[2018-04-21] MEDS: PANTOPRAZOLE 40 MG INJ IV SCH ×2 (09:48→18:37)
--- NOTE | 2018-04-21 10:43 | PN ---
SIMEONHERBKAYE VOCATIONAL HORTICULTURE INSTRUCTOR 04/21/18 1043: Date/Time of Note Date/Time of Note DATE: 04/21/18 TIME: 10:38 Assessment/Plan VTE Prophylaxis Risk score (from Ns)>0 risk: 1 SCD applied (from Ns): No SCD contraindicated: other Pharmacological prophylaxis: heparin Lines/Catheters IV [facility]ter Type (from [facility] A Line Urinary Cath still in place: Yes Reason Cath still needed: other (indicate) Assessment/Plan Hospital Course SUBJECTIVE: The patient remains intubated. The patient is awake and alert. Denies any pain. OBJECTIVE: Physical Exam General: Adequately build 17 year-old female lying in bed in no apparent dis tress. HEENT: Normocephalic, atraumatic. Eyes: Anicteric sclerae, conjunctivae clear. ENT: Nasal septum midline, oral mucosa moist. Neck supple, JVD noticed. Right IJ TLC. Respiratory: Bilaterally diminished breath sounds. bibasilar rales. ETT to Vent. Cardiovascular: S1, S2 heard. Regular rate and rhythm. Tachycardia. Abdomen: Soft, nontender, and nondistended. Bowel sounds positive in all 4 qu adrants. Genitourinary: Deferred. Extremities: No cyanosis, no clubbing. Right leg in a long dressing to the mid femur level. Able to move toes on the right foot. Neurologic: The patient is awake, alert, and oriented. Skin: Abrasion in the right elbow area. Labs & Vitals per chart ASSESSMENT & PLAN 17-year-old female who denies any significant past medical history who initially went to [facility] emergency room with right foot pain after she had an exercise related injury. X-ray of the right foot at [facility] emergency room showed trimalleolar fracture. The ER physician tried manipulative reduction with a repeat x-ray showing alignment of the fracture with soft tissue swelling. The patient was transferred to [facility] for further evaluation because of insurance reasons. The patient was taken to the OR on 04/20/2018 for a right foot ORIF. After anesthesia induction, the patient went into flash pulmonary edema that necessitated aborting the procedure and transferring the patient to intensive care unit. 1. Acute respiratory failure on 04/20/2018. -Hypoxic. Etiology could be secondary to flash pulmonary edema. -Continue diuresis. -Obtain 2D echocardiogram to evaluate left ejection fraction. -Bilateral lower extremity venous Doppler study negative for any DVT. -Ventilator weaning as per pulmonary. 2. Trimalleolar fracture of the right foot. -Continue pain control. -Nonweightbearing of the right lower extremity. -Orthopedic surgery evaluation ongoing. 3. Leukocytosis. -Patient was started on antibiotics for any aspiration pneumonitis. 4. Fluids, electrolytes, and nutrition. -N.p.o. 5. DVT prophylaxis. -Subcutaneous heparin. 6. Gastrointestinal prophylaxis (patient intubated in intensive care unit). -PPI 7.-Plan. -Continue diuresis. -Ventilator weaning as per pulmonary. -Continue supportive care. Updated the patient's mother who was at the bedside. The patient was seen in collaboration with Dr. Guerin. Critical care time: 40 minutes. Result Diagram: 04/21/18 0400 04/21/18 0400 Results 24hrs Laboratory Tests Test 04/20/18 16:54 04/20/18 18:32 04/20/18 20:30 04/21/18 02:00 Blood Gas Blood arterial Blood Blood Specimen arterial arterial Source Arterial Blood 04/20/2018 4:52 04/20/2018 6:5 04/20/2018 8:4 Date Drawn :02 PM 0:03 PM 5:03 PM Arterial Blood 7.139 *L 7.200 *L 7.280 *L pH (Temp corrected ) Arterial Blood 68.2 H 71.2 H 45.7 H pCO2 (Temp correct) Arterial Blood 60.5 L 185.4 H 105.0 H pO2 (Temp corrected ) Arterial Blood 22.6 27.2 H 21.0 L HCO3 Arterial Blood -7.3 L -2.8 -5.8 L Base Excess Arterial Blood 82.1 L 98.8 H 96.9 Oxygen Saturati on Chato Test ACCEPTAB N/A N/A Arterial Blood Right Radial A-Line A-Line Gas Puncture Site Arterial 0.3 0.1 0 Blood Carboxyhe moglobin Arterial Blood 0.4 0.5 0.3 Methemoglobin Blood Gas A-a 584.3 H 456.4 H 417.4 H O2 Differential Oxyhemoglobin 81.5 L 98.2 96.6 Percent Blood Gas 37.0 37.0 37.0 Temperature Blood Gas VENT - AC VENT - AC VENT - AC Modality FiO2 100.0 100.0 80.0 Blood Gas TFANU CAMILA, L RN KSHAHINYAN, Critical Value RN Read Back Blood Gas Shyam Talley buggy ladle tender MA MG Notified Whom Blood Gas 04/20/2018 5:10 04/20/2018 7:0 04/20/2018 8:5 Notified Time :08 PM 3:04 PM 5:06 PM Blood Gas 12.0 20.0 Respiration Rate Blood Gas 16 20 Actual Respiration Rat e Blood Gas Tidal 500.0 500.0 Volume Blood Gas Low 7.0 7.0 PEEP Setting Blood Gas 36.0 Inspiratory Pressure Urine Color YELLOW Urine Clarity SLIGHTLY CLOUD Y A Urine pH 5.0 Urine Specific 1.010 [place] Urine Ketones 1+ H Urine Nitrite NEGATIVE Urine Bilirubin NEGATIVE Urine NEGATIVE Urobilinogen Urine Leukocyte NEGATIVE Esterase Urine 8 H Microscopic RBC Urine 7 H Microscopic WBC Urine 2+ H Hemoglobin Urine Glucose NEGATIVE Urine Total NEGATIVE Protein Test 04/21/18 04:00 04/21/18 05:00 White Blood 23.2 #H Count Red Blood Count 4.55 # Hemoglobin 14.0 Hematocrit 40.9 Mean 89.9 Corpuscular Volume Mean 30.8 Corpuscular Hemoglobin Mean 34.2 Corpuscular Hemoglobin Conc ent Red Cell 11.8 Distribution Width Platelet Count 377 # Mean Platelet 10.3 Volume Immature 0.700 H Granulocytes % Neutrophils % 90.4 H Lymphocytes % 5.0 L Monocytes % 3.7 Eosinophils % 0.0 Basophils % 0.2 Nucleated Red 0.0 Blood Cells % Immature 0.160 H Granulocytes # Neutrophils # 21.0 H Lymphocytes # 1.2 Monocytes # 0.9 Eosinophils # 0.0 Basophils # 0.0 Nucleated Red 0.0 Blood Cells # Sodium Level 138 Potassium Level 4.3 Chloride Level 100 Carbon Dioxide 23 Level Anion Gap 15 #H Blood Urea 13 Nitrogen Creatinine 0.72 Est Glomerular > 60 Filtrat Rate mL/min Glucose Level 123 Calcium Level 9.0 Phosphorus 5.3 H Level Magnesium Level 1.6 L Blood Gas Blood Specimen arterial Source Arterial Blood 04/21/2018 4:5 Date Drawn 0:21 AM Arterial Blood 7.445 pH (Temp corrected ) Arterial Blood 30.4 L pCO2 (Temp correct) Arterial Blood 134.4 H pO2 (Temp corrected ) Arterial Blood 20.4 L HCO3 Arterial Blood -2.4 Base Excess Arterial Blood 98.6 H Oxygen Saturati on Chato Test N/A Arterial Blood A-Line Gas Puncture Site Arterial 0 Blood Carboxyhe moglobin Arterial Blood 0.3 Methemoglobin Blood Gas A-a 332.0 H O2 Differential Oxyhemoglobin 98.3 Percent Blood Gas 37.0 Temperature Blood Gas 20.0 Respiration Rate Blood Gas 20 Actual Respiration Rat e Blood Gas VENT - AC Modality FiO2 70.0 Blood Gas Tidal 500.0 Volume Blood Gas Low 7.0 PEEP Setting Blood Gas MG Notified Whom Blood Gas 04/21/2018 5:0 Notified Time 0:22 AM Exam/Review of Systems Vital Signs Vitals Vital Signs Date Temp Pulse Resp B/P (MAP) Pulse Ox O2 O2 Flow FiO2 Time Delivery Rate 04/21/18 121 22 99 50 07:55 04/21/18 117/66 06:15 (83) 04/21/18 Mechanical 06:00 Ventilator 04/21/18 98.4 04:00 Intake and Output 04/20/18 04/20/18 04/21/18 1515:00 23:00 07:00 IntakeIntake Total 450 ml 2961.394 ml 96.490 ml OutputOutput Total 900 ml 30 ml BalanceBalance 450 ml 2061.394 ml 66.490 ml Medications Medications Current Medications IV Flush (NS 3 ml) 3 ml PER PROTOCOL IV Last administered on 04/17/18at 03:15; Admin Dose 3 ML; Start 04/17/18 at 02:30 Ondansetron HCl (Zofran Inj) 4 mg Q6H PRN IV NAUSEA AND/OR VOMITING; Start 04/17/18 at 02:30 Acetaminophen (Tylenol Tab) 650 mg Q6H PRN PO PAIN LEVEL 1-3 OR FEVER Last administered on 04/17/18at 14:10; Admin Dose 650 MG; Start 04/17/18 at 02:30 Acetaminophen/ Hydrocodone Bitart ([place] (5/325)) 1 tab Q6H PRN PO MODERATE PAIN LEVEL 4-6 Last administered on 04/19/18at 01:42; Admin Dose 1 TAB; Start 04/17/18 at 02:30 Acetaminophen/ Hydrocodone Bitart ([place] (5/325)) 2 tab Q6H PRN PO SEVERE PAIN LEVEL 7-10 Last administered on 04/18/18at 11:15; Admin Dose 2 TAB; Start 04/17/18 at 02:30 Heparin Sodium (Porcine) (Heparin (5000 Units/1ml)) 5,000 unit Q12 SC Last administered on 04/18/18at 10:19; Admin Dose 5,000 UNIT; Start 04/17/18 at 09:00 Zolpidem Tartrate (Ambien) 5 mg HS PRN PO INSOMNIA; Start 04/17/18 at 21:00 Polyethylene Glycol (Miralax) 17 gm BID PO ; Start 04/19/18 at 21:00 Propofol 100 ml @ 1.899 mls/ hr Q12H IV Last administered on 04/21/18at 02:10; Admin Dose 11.394 MLS/HR; Start 04/20/18 at 19:00 Fentanyl 100 ml @ 2.5 mls/hr TITRATE IV Last administered on 04/21/18at 01:49; Admin Dose 2.5 MLS/HR; Start 04/21/18 at 01:30 Pantoprazole (Protonix Iv) 40 mg BID@06,18 IV Last administered on 04/21/18at 09:48; Admin Dose 40 MG; Start 04/21/18 at 09:30 YUKI GUERIN 04/23/18 1701: Assessment/Plan Assessment/Plan Assessment/Plan addendum: Patient has been successfully extubated, on O2 5L via NC Constitutional: alert, oriented, no distress Head: atraumatic, normocephalic Neck: non-tender, supple Respiratory: clear to auscultation Cardiovascular: regular rate and rhythm Gastrointestinal: S/ NT / ND / +BS Extremities: RLE bandaged , good radial pulses, assessment and plan: Agree with VOCATIONAL HORTICULTURE INSTRUCTOR asessment and plan 1. Transient resp failure requiring vent support likely 2/2 flash pulm edema 04/20 2. Trimalleolar fracture of the right foot. 3. Leukocytosis. Plan. -Continue diuresis. -Continue abx -wean off o2 for now -hold off on surgical repair till patient more stable -Continue supportive care. Result Diagram: 04/21/1839904/21/18399 KAYE MILES NP Apr 21, 2018 10:43 YUKI GUERIN Apr 23, 2018 17:01
--- NOTE | 2018-04-21 12:13 | RADRPT ---
Vent Rate: 113 bpm RR Interval: 0 msec NH Interval: 0 msec QRS Duration: 70 msec QT Interval: 344 msec QTC Interval: 471 msec P-R-T [place]: 50 - 76 - 44 degrees Atrial flutter 2:1 vs sinus Abnormal ECG Electronically Signed By: Gabriel Gutierrez [id number]
--- NOTE | 2018-04-21 15:13 | CONS ---
DATE OF ADMISSION: 04/17/2018 DATE OF CONSULTATION: TYPE OF CONSULTATION: Pulmonary. REASON FOR CONSULTATION: Mechanical ventilation respiratory failure. Thank you, Dr. Brown, for this consultation. HISTORY OF PRESENT ILLNESS: This is a pleasant 17-year-old lady with history of recent ankle fractur e, transferred from [facility] to [facility] for insurance purposes . Yesterday, she was going for an elective ankle surgery. The patient was sedated, requiring intuba tion. Prior to intubation, she developed acute pulmonary edema with significant hypoxemia with evide nce of pulmonary edema on chest x-ray. Hypoxemia occurred following induction. The patient had dimi nished breath sounds. No evidence of pneumothorax and was given diuretics overnight. This morning, awake, alert, oriented, requesting removal of endotracheal tube. No prior history of cardiac problem s. PAST MEDICAL HISTORY: None. MEDICATIONS: Per chart. ALLERGIES: NONE. SOCIAL HISTORY: Nonsmoker, no alcohol, no history of drug use. FAMILY HISTORY: Noncontributory. REVIEW OF SYSTEMS: A 12-point review of systems was negative other than that mentioned above. PHYSICAL EXAMINATION: GENERAL: Well-nourished, well-developed lady, comfortable at rest, in no acute distress. VITAL SIGNS: Currently afebrile, pulse is 110, blood pressure 118/80, O2 saturation 96%, FiO2 of 30% . NECK: Supple. No JVD or lymphadenopathy. CARDIAC: S1, S2. No added sounds or murmurs. CHEST: Diminished air entry bilaterally. ABDOMEN: Soft, nontender. No guarding or rebound. EXTREMITIES: No cyanosis, clubbing, edema. NEUROLOGICAL: Grossly intact. No focal deficits. LABORATORY DATA: White count 23.2, hemoglobin 14, platelets of 377. Chemistry within normal limits other than low magnesium. INR was 0.99. Arterial blood gas preextubation: pH 7.45, pCO2 of 33, pO2 of 97. Urinalysis was unremarkable. U-tox was previously positive for opiates and benzos. IMPRESSION AND PLAN: Acute hypoxemic respiratory failure likely secondary to acute pulmonary edema l ikely secondary to negative pressure on mechanical ventilation. The patient improved with addition o f diuretics. Elevated leukocytosis is possibly secondary to aspiration component. The patient will require: 1. Continued supplemental O2 as needed. 2. Aspiration precautions. 3. Antibiotics for possible aspiration pneumonia. 4. Cardiology evaluation and recommendation following echocardiogram. 5. DVT and GI prophylaxis. 6. Ankle surgery when cleared by cardiology. Dictated By: SAMARIA BELTRAN MD SV/ARTURO Conf#: [id number] DID#: [id number] CC: TIGRE BRWON MD; ZACH GUNN MD;*[facility]*
[2018-04-21] MEDS: PIPER-TAZO 3.375 GM IV (PMX) 100 ML IVPB SCH ×2 (15:17→21:35)
--- NOTE | 2018-04-21 16:29 | RADRPT ---
Echocardiogram Report Patient Name: RAMESH CRUZ Gender: Female Date: 2000 Study Date: 21-Apr-2018 Wheat Inspector: Alexsander Molina RDCS Location: 119 Ref. Physician: KAYE MILES Quality: Adequate Procedures: Transthoracic echocardiogram with complete 2D, M-Mode, and doppler examination. Indications: Resp Arrest. 2D/M Mode Doppler Measurement Value Normal Ranges Measurement Value Normal Ranges LVIDd 2D 2.7 3.5 - 5.6 cm AV Peak [place] 1.1 m/sec LVIDs 2D 2.1 2.1 - 4.1 cm AV Peak PG 5.0 mmHg LVPWd 2D 1.0 0.6 - 1.1 cm LVOT Peak [place] 0.9 m/sec IVSd 2D 1.1 0.6 - 1.1 cm LVOT Peak PG 3.0 mmHg AoR Diam 2D 2.2 2.0 - 3.7 cm LA/Ao 2D 1 0 - 1 LA Dimen 2D 2.0 2.3 - 4.0 cm Findings Left Ventricle: Normal left ventricular systolic function. Normal left ventricular cavity size. Mild concentric left ventricular hypertrophy. Ejection fraction is visually estimated at 55 %. Right Ventricle: Normal right ventricular size. Normal right ventricular systolic function. Left Atrium: The left atrium is normal in size. Right Atrium: The right atrium is normal in size. Mitral Valve: Normal appearance and function of the mitral valve with trace physiologic regurgitation. Aortic Valve: Normal appearance of the aortic valve. No significant aortic stenosis or insufficiency. Tricuspid Valve: Normal appearance of the tricuspid valve. Unable to obtain RVSP due to minimal presence of tricuspid regurgitation. Pulmonic Valve: Normal pulmonic valve appearance. Pericardium: Normal pericardium with no significant pericardial effusion. Aorta: Normal aortic root. IVC: Inferior vena cava without respiratory collapse, however, patient on ventilator. Conclusions Normal left ventricular systolic function. Normal left ventricular cavity size. Mild concentric left ventricular hypertrophy. Ejection fraction is visually estimated at 55 %. Normal appearance and function of the mitral valve with trace physiologic regurgitation. Normal appearance of the tricuspid valve. Unable to obtain RVSP due to minimal presence of tricuspid regurgitation. Electronically Signed By: Zachary Pozo 21-Apr-2018 16:29:17 -0800 Patient Name: RAMESH CRUZ Study Date: 21-Apr-2018 [id number]
--- NOTE | 2018-04-21 19:05 | NUR ---
EOSS remains ST 110-120s, BP WNL, AAOx4, texting to communicate while with ETT, successfully extubated @ 1230 hrs, o2 sat >92% on 3LPM/NC, IS pulling 1 liter , no c/o pain, R lower leg has dressing c/d/i, abrasion on R elbow stable and dry, able to move R toes , capillary refill <2 secs, diuresed well with Lasix
[2018-04-21] MEDS: HYDROCODONE/APAP (5/325) TAB PO PRN (19:50)
[2018-04-21] MEDS: HEPARIN 5,000 UNIT/1 ML VIAL SC SCH (21:42)
[2018-04-22] VITALS (20 sets, daily range): BP systolic 77–109; BP diastolic 50–81; PULSE 89–116; RESP 15–35
[2018-04-22] MEDS: PANTOPRAZOLE 40 MG INJ IV SCH ×2 (06:14→18:05)
[2018-04-22] MEDS: PIPER-TAZO 3.375 GM IV (PMX) 100 ML IVPB SCH ×3 (06:14→20:57)
[2018-04-22] MEDS: POTASSIUM CHLORIDE 50 ML IVPB SCH ×2 (06:16→08:27)
[2018-04-22] MEDS: HEPARIN 5,000 UNIT/1 ML VIAL SC SCH ×2 (08:34→20:35)
[2018-04-22] MEDS: POLYETHYLENE GLYCOL 17 GM PACKET PO SCH ×2 (08:36→20:31)
--- NOTE | 2018-04-22 09:07 | PN ---
Date/Time of Note Date/Time of Note DATE: 04/22/18 TIME: 09:06 Assessment/Plan VTE Prophylaxis Risk score (from Ns)>0 risk: 13 SCD applied (from Ns): Yes Pharmacological prophylaxis: heparin Lines/Catheters IV Catheter Type (from Nrsg): Central Line Central line still needed: Yes Urinary Cath still in place: No Assessment/Plan Hospital Course SUBJECTIVE: The patient is extubated. The patient is awake and alert. Denies any pain. OBJECTIVE: Physical Exam General: Adequately build 17 year-old female lying in bed in no apparent distres s. HEENT: Normocephalic, atraumatic. Eyes: Anicteric sclerae, conjunctivae clear. ENT: Nasal septum midline, oral mucosa moist. Neck supple, JVD noticed. Right IJ triple lumen catheter. Respiratory: Bilaterally clear breath sounds. No use of accessory muscles of respiration. Bibasilar rales. Cardiovascular: S1, S2 heard. Regular rate and rhythm. Abdomen: Soft, nontender, and nondistended. Bowel sounds positive in all 4 quadrants. Genitourinary: Deferred. Extremities: No cyanosis, no clubbing. Right leg in a long dressing to the mid femur level. Able to move toes on the right foot. Neurologic: Cranial nerves II through XII grossly intact. The patient is awake, alert, and oriented. Skin: Abrasion in the right elbow area. Labs & Vitals per chart ASSESSMENT & PLAN 17-year-old female who denies any significant past medical history who initially went to [facility] emergency room with right foot pain after she had an exercise related injury. X-ray of the right foot at [facility] emergency room showed trimalleolar fracture. The ER physician tried manipulative reduction with a repeat x-ray showing alignment of the fracture with soft tissue swelling. The patient was transferred to [facility] for further evaluation because of insurance reasons. The patient was taken to the OR on 04/20/2018 for a right foot ORIF. After anesthesia induction, the patient went into flash pulmonary edema that necessitated abor ting the procedure and transferring the patient to intensive care unit. 1. Acute respiratory failure on 04/20/2018. -Hypoxic. -Etiology could be secondary to flash pulmonary edema. -2D echocardiogram showing preserved left ventricular ejection fraction. -Continue diuresis. -Bilateral lower extremity venous Doppler study negative for any DVT. -Extubated on 04/21/2018. 2. Trimalleolar fracture of the right foot. -Continue pain control. -Nonweightbearing of the right lower extremity. -Orthopedic surgery evaluation ongoing. 3. Leukocytosis. -Patient was started on antibiotics for any aspiration pneumonitis. 4. Fluids, electrolytes, and nutrition. -Regular diet. 5. DVT prophylaxis. -Subcutaneous heparin. 6. Gastrointestinal prophylaxis (patient in intensive care unit). -PPI 7.-Plan. -Continue diuresis. -Continue supportive care. -May be transferred out of ICU if OK with consultants. Updated the patient's mother who was at the bedside. The patient was seen in collaboration with Dr. Valle. Critical care time: 35 minutes. Result Diagram: 04/22/18 0415 04/22/18 0424 Results 24hrs Laboratory Tests Test 04/21/18 11:09 04/22/18 04:15 04/22/18 04:24 Blood Gas Specimen Blood arterial Source Arterial Blood Date 04/21/2018 11:15:11 AM Drawn Arterial Blood pH 7.458 H (Temp corrected) Arterial Blood pCO2 33.0 L (Temp correct) Arterial Blood pO2 97.7 (Temp corrected) Arterial Blood HCO3 22.8 Arterial Blood Base -0.3 Excess Arterial Blood 97.4 Oxygen Saturation [place] Test N/A Arterial Blood Gas A-Line Puncture Site Arterial 0.2 Blood Carboxyhemoglobin Arterial Blood 0.4 Methemoglobin Blood Gas A-a O2 221.7 H Differential Oxyhemoglobin Percent 96.8 Blood Gas Temperature 37.0 Blood Gas Actual 20 Respiration Rate Blood Gas Modality VENT - CPAP FiO2 50.0 Blood Gas Low PEEP 5.0 Setting Blood Gas Pressure 10 Support Blood Gas Notified Whom TM Blood Gas Notified Time 04/21/2018 11:29:05 AM White Blood Count 18.1 #H Red Blood Count 3.64 L Hemoglobin 11.2 L Hematocrit 33.3 L Mean Corpuscular Volume 91.5 Mean Corpuscular 30.8 Hemoglobin Mean Corpuscular 33.6 Hemoglobin Concent Red Cell Distribution 12.1 Width Platelet Count 304 Mean Platelet Volume 10.0 Immature Granulocytes % 0.400 Neutrophils % 71.2 Lymphocytes % 19.7 Monocytes % 7.9 Eosinophils % 0.5 Basophils % 0.3 Nucleated Red Blood 0.0 Cells % Immature Granulocytes # 0.080 H Neutrophils # 12.9 H Lymphocytes # 3.6 H Monocytes # 1.4 H Eosinophils # 0.1 Basophils # 0.1 Nucleated Red Blood 0.0 Cells # Sodium Level 139 Potassium Level 3.3 L Chloride Level 102 Carbon Dioxide Level 30 Anion Gap 7 # Blood Urea Nitrogen 15 Creatinine 0.82 Est Glomerular Filtrat > 60 Rate mL/min Glucose Level 112 Calcium Level 8.9 Phosphorus Level 3.7 Magnesium Level 2.4 Total Bilirubin 0.4 Direct Bilirubin 0.00 Indirect Bilirubin 0.4 Aspartate Amino 165 H Transf (AST/SGOT) Alanine 91 H Aminotransferase (ALT/SG PT) Alkaline Phosphatase 83 Total Protein 6.9 Albumin 3.7 Globulin 3.20 Albumin/Globulin Ratio 1.15 Exam/Review of Systems Vital Signs Vitals Vital Signs Date Temp Pulse Resp B/P (MAP) Pulse Ox O2 O2 Flow FiO2 Time Delivery Rate 04/22/18 98.6 90 17 89/54 (66) 93 Room Air 08:00 04/22/18 2.0 01:07 04/21/18 30 11:42 Intake and Output 04/21/18 04/21/18 04/22/18 1515:00 23:00 07:00 IntakeIntake Total 0 ml 560 ml 240 ml OutputOutput Total 955 ml 900 ml 700 ml BalanceBalance -955 ml -340 ml -460 ml Medications Medications Current Medications IV Flush (NS 3 ml) 3 ml PER PROTOCOL IV Last administered on 04/17/18at 03:15; Admin Dose 3 ML; Start 04/17/18 at 02:30 Ondansetron HCl (Zofran Inj) 4 mg Q6H PRN IV NAUSEA AND/OR VOMITING; Start 04/17/18 at 02:30 Acetaminophen (Tylenol Tab) 650 mg Q6H PRN PO PAIN LEVEL 1-3 OR FEVER Last administered on 04/17/18at 14:10; Admin Dose 650 MG; Start 04/17/18 at 02:30 Acetaminophen/ Hydrocodone Bitart ([place] (5/325)) 1 tab Q6H PRN PO MODERATE PAIN LEVEL 4-6 Last administered on 04/21/18at 19:50; Admin Dose 1 TAB; Start 04/17/18 at 02:30 Acetaminophen/ Hydrocodone Bitart (Ray (5/325)) 2 tab Q6H PRN PO SEVERE PAIN LEVEL 7-10 Last administered on 04/18/18at 11:15; Admin Dose 2 TAB; Start 04/17/18 at 02:30 Heparin Sodium (Porcine) (Heparin (5000 Units/1ml)) 5,000 unit Q12 SC Last administered on 04/22/18at 08:34; Admin Dose 5,000 UNIT; Start 04/17/18 at 09:00 Zolpidem Tartrate (Ambien) 5 mg HS PRN PO INSOMNIA; Start 04/17/18 at 21:00 Polyethylene Glycol (Miralax) 17 gm BID PO ; Start 04/19/18 at 21:00 Pantoprazole (Protonix Iv) 40 mg BID@06,18 IV Last administered on 04/22/18at 06:14; Admin Dose 40 MG; Start 04/21/18 at 09:30 Piperacillin Sod/ Tazobactam Sod 100 ml @ 200 mls/hr Q8 IVPB Last administered on 04/22/18at 06:14; Admin Dose 200 MLS/HR; Start 04/21/18 at 14:00 Potassium Chloride 50 ml @ 25 mls/hr Q2H IVPB Last administered on 04/22/18at 08:27; Admin Dose 25 MLS/HR; Start 04/22/18 at 06:00; Stop 04/22/18 at 09:59 KAYE MILES NP Apr 22, 2018 09:07
[2018-04-22] MEDS ORDERED: FUROSEMIDE 20 MG INJ IV ONE (09:30)
--- NOTE | 2018-04-22 14:12 | CONS ---
Date/Time of Note Date/Time of Note DATE: 04/22/18 TIME: 14:08 Consult Date/Type/Reason Admit Date/Time Apr 17, 2018 at 00:18 Initial Consult Date Type of Consultation: Pulm/CCM Subjective Doing much better. No dyspnea. C/O mild chest discomfort. Objective Vital Signs Date Temp Pulse Resp B/P (MAP) Pulse Ox O2 O2 Flow FiO2 Time Delivery Rate 04/22/18 102 20 107/70 93 Room Air 11:00 (82) 04/22/18 98.6 08:00 04/22/18 2.0 01:07 04/21/18 30 11:42 Intake and Output 04/21/18 04/21/18 04/22/18 1515:00 23:00 07:00 IntakeIntake Total 0 ml 560 ml 240 ml OutputOutput Total 955 ml 900 ml 700 ml BalanceBalance -955 ml -340 ml -460 ml Exam HEENT: Neck supple; no JVD; no LAD CVS: RRR, S1 and S2 CHEST: Clear ABD: Soft, NT, + BS EXT: No c/c/e Results/Medications Result Diagram: 04/22/18 0415 04/22/18 0424 Results 24 hrs Laboratory Tests Test 04/22/18 04:15 04/22/18 04:24 White Blood Count 18.1 #H Red Blood Count 3.64 L Hemoglobin 11.2 L Hematocrit 33.3 L Mean Corpuscular Volume 91.5 Mean Corpuscular Hemoglobin 30.8 Mean Corpuscular Hemoglobin Concent 33.6 Red Cell Distribution Width 12.1 Platelet Count 304 Mean Platelet Volume 10.0 Immature Granulocytes % 0.400 Neutrophils % 71.2 Lymphocytes % 19.7 Monocytes % 7.9 Eosinophils % 0.5 Basophils % 0.3 Nucleated Red Blood Cells % 0.0 Immature Granulocytes # 0.080 H Neutrophils # 12.9 H Lymphocytes # 3.6 H Monocytes # 1.4 H Eosinophils # 0.1 Basophils # 0.1 Nucleated Red Blood Cells # 0.0 Sodium Level 139 Potassium Level 3.3 L Chloride Level 102 Carbon Dioxide Level 30 Anion Gap 7 # Blood Urea Nitrogen 15 Creatinine 0.82 Est Glomerular Filtrat Rate mL/min > 60 Glucose Level 112 Calcium Level 8.9 Phosphorus Level 3.7 Magnesium Level 2.4 Total Bilirubin 0.4 Direct Bilirubin 0.00 Indirect Bilirubin 0.4 Aspartate Amino Transf (AST/SGOT) 165 H Alanine Aminotransferase (ALT/SGPT) 91 H Alkaline Phosphatase 83 Total Protein 6.9 Albumin 3.7 Globulin 3.20 Albumin/Globulin Ratio 1.15 Medications Current Medications IV Flush (NS 3 ml) 3 ml PER PROTOCOL IV Last administered on 04/17/18at 03:15; Admin Dose 3 ML; Start 04/17/18 at 02:30 Ondansetron HCl (Zofran Inj) 4 mg Q6H PRN IV NAUSEA AND/OR VOMITING; Start 04/17/18 at 02:30 Acetaminophen (Tylenol Tab) 650 mg Q6H PRN PO PAIN LEVEL 1-3 OR FEVER Last administered on 04/17/18at 14:10; Admin Dose 650 MG; Start 04/17/18 at 02:30 Acetaminophen/ Hydrocodone Bitart ([place] (5/325)) 1 tab Q6H PRN PO MODERATE PAIN LEVEL 4-6 Last administered on 04/21/18at 19:50; Admin Dose 1 TAB; Start 04/17/18 at 02:30 Acetaminophen/ Hydrocodone Bitart ([place] (5/325)) 2 tab Q6H PRN PO SEVERE PAIN LEVEL 7-10 Last administered on 04/18/18at 11:15; Admin Dose 2 TAB; Start 04/17/18 at 02:30 Heparin Sodium (Porcine) (Heparin (5000 Units/1ml)) 5,000 unit Q12 SC Last administered on 04/22/18at 08:34; Admin Dose 5,000 UNIT; Start 04/17/18 at 09:00 Zolpidem Tartrate (Ambien) 5 mg HS PRN PO INSOMNIA; Start 04/17/18 at 21:00 Polyethylene Glycol (Miralax) 17 gm BID PO ; Start 04/19/18 at 21:00 Pantoprazole (Protonix Iv) 40 mg BID@06,18 IV Last administered on 04/22/18at 06:14; Admin Dose 40 MG; Start 04/21/18 at 09:30 Piperacillin Sod/ Tazobactam Sod 100 ml @ 200 mls/hr Q8 IVPB Last administered on 04/22/18at 06:14; Admin Dose 200 MLS/HR; Start 04/21/18 at 14:00 Assessment/Plan Additional Assessment/Plan IMP: 1. Acute respiratory failure--2/2 negative pressure pulm amandeep (NPPE). NPPE nesults from generation of high negative intrathoracic pressures needed to overcome an obstructed airway, particularly common in young individuals. 2. Trimalleolar fracture of the right foot. 3. Leukocytosis. RECS: 1. Continued monitoring. No need for further diuresis 2. Replete lytes 3. DVT prophylaxis 35 min cc time DYANA BAIRD MD Apr 22, 2018 14:12
--- NOTE | 2018-04-22 18:52 | NUR ---
Patient has transfer orders for telemetry. Stable at this time with no c/o of pain, remains on bedrest, HR at times elevated 130's, likely d/t anxiety per patient.. Dr. Cobian spoke to patient and her mother regarding plan for future surgery including spinal anesthesia. One episode of bowel incontinence today. Hoover and CVL both d/c'd.
--- NOTE | 2018-04-22 20:00 | CONS ---
DATE OF ADMISSION: 04/17/2018 DATE OF CONSULTATION: HISTORY OF PRESENT ILLNESS: The patient is 17 years old, who was admitted with right ankle pain. Th e patient has acute onset of hypoxic respiratory failure with underlying acute pulmonary edema. The patient has intubation and then extubation with improvement. Accompanied by her mother in the room. PAST MEDICAL HISTORY: None. MEDICATIONS: None. ALLERGIES: NO ALLERGIES KNOWN TO MEDICATIONS. SOCIAL HISTORY: The patient does not smoke, does not drink, does not take any street drugs. FAMILY HISTORY: Unavailable. PHYSICAL EXAMINATION: GENERAL: The patient is alert, awake, oriented for time, place, and person. Normal speech and mark l language. CRANIAL NERVES: Cranial nerves II: Pupils equal on both sides, reactive to light. Cranial nerves I II, IV and : Extraocular muscles are intact without nystagmus. Cranial nerve V: Equal sensation to face. Cranial nerve VII: Symmetrical face. Cranial nerve VIII: Equal hearing bilaterally. Master Of Ceremonies nial IX and X: Elevates palate. Cranial nerve XI: Elevates shoulder 5/5. Cranial nerve XII: With straight tongue. MOTOR: Equal on both sides. HEART: Regular rate and rhythm. LUNGS: Equal breath sounds. ABDOMEN: Soft, relaxed, nondistended. No tenderness. VITAL SIGNS: With tachycardia, her heart rate 110 to 115. LABORATORY DATA: White cell count today is 23.2. ASSESSMENT AND PLAN: 1. The patient is 17 years old with history of decreased mini-mental status. 2. Underlying acute hypoxic encephalopathy. Follow up the patient with electroencephalogram and fol low up the patient with magnetic resonance imaging. 3. The patient is improving tachycardia, in which the patient is followed by cardiology and echocard iogram. 4. Underlying pulmonary edema, followed by pulmonary consult. 5. Status post right ankle fracture pending for surgery with right fibular fracture. Dictated By: DAYNA FERGUSON MD NA/NTS Conf#: [id number] DID#: [id number] CC: TIGRE MONTANO MD;*EndCC*
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
--- NOTE | 2018-04-22 23:41 | NUR ---
Transfer to Tele (6th floor): Transfer nursing care report given to Frieda ([phone]). Pt to go to rm #[id number].
[2018-04-23] VITALS (12 sets, daily range): BP systolic 88–116; BP diastolic 54–75; PULSE 95–116; RESP 16–19
[2018-04-23] MEDS: HYDROCODONE/APAP (5/325) TAB PO PRN (03:16)
[2018-04-23] MEDS: PANTOPRAZOLE 40 MG INJ IV SCH ×2 (06:00→17:29)
[2018-04-23] MEDS: PIPER-TAZO 3.375 GM IV (PMX) 100 ML IVPB SCH ×3 (06:03→23:02)
--- NOTE | 2018-04-23 07:29 | NUR ---
Pt. a/o x4. Pt. stable. Family at bedside. Hourly rounding completed. Call light within reach. All needs met and attended too.
[2018-04-23] MEDS: POLYETHYLENE GLYCOL 17 GM PACKET PO SCH ×2 (08:35→21:00)
[2018-04-23] MEDS: HEPARIN 5,000 UNIT/1 ML VIAL SC SCH ×2 (08:38→22:48)
--- NOTE | 2018-04-23 08:42 | RADRPT ---
Vent Rate: 108 bpm RR Interval: 0 msec NV Interval: 126 msec QRS Duration: 86 msec QT Interval: 350 msec QTC Interval: 469 msec P-R-T [place]: 49 - 76 - 4 degrees Sinus tachycardia Nonspecific T wave abnormality Abnormal ECG Electronically Signed By: Beto Mosher [id number]
--- NOTE | 2018-04-23 11:13 | PN ---
Date/Time of Note Date/Time of Note DATE: 04/23/18 TIME: 11:10 Assessment/Plan VTE Prophylaxis Risk score (from Ns)>0 risk: 9 SCD applied (from Ns): Yes Pharmacological prophylaxis: heparin Lines/Catheters IV Catheter Type (from [facility] Sal[place] Lock Urinary Cath still in place: No Assessment/Plan Hospital Course SUBJECTIVE: The patient is awake and alert. Denies any pain. Patient always wants a family member to stay at the bedside because she is "scared" to be alone. OBJECTIVE: Physical Exam General: Adequately build 17 year-old female lying in bed in no apparent distress. HEENT: Normocephalic, atraumatic. Eyes: Anicteric sclerae, conjunctivae clear. ENT: Nasal septum midline, oral mucosa moist. Neck supple. Respiratory: Bilaterally clear breath sounds. No use of accessory muscles of respiration. Cardiovascular: S1, S2 heard. Regular rate and rhythm. Abdomen: Soft, nontender, and nondistended. Bowel sounds positive in all 4 quadrants. Genitourinary: Deferred. Extremities: No cyanosis, no clubbing. Right leg in a long dressing to the mid femur level. Able to move toes on the right foot. Neurologic: Cranial nerves II through XII grossly intact. The patient is awake, alert, and oriented. Labs & Vitals per chart ASSESSMENT & PLAN 17-year-old female who denies any significant past medical history who initially went to [facility] emergency room with right foot pain after she had an exercise related injury. X-ray of the right foot at [facility] emergency room showed trimalleolar fracture. The ER physician tried manipulative reduction with a repeat x-ray showing alignment of the fracture with soft tissue swelling. The patient was transferred to [facility] for further evaluation because of insurance reasons. The patient was taken to the OR on 04/20/2018 for a right foot ORIF. After anesthesia induction, the patient went into flash pulmonary edema that necessitated aborting the procedure and transferring the patient to intensive care unit. 1. Acute respiratory failure on 04/20/2018. -Hypoxic. -Etiology could be secondary to flash pulmonary edema. -2D echocardiogram showing preserved left ventricular ejection fraction. -Continue diuresis. -Bilateral lower extremity venous Doppler study negative for any DVT. -Extubated on 04/21/2018. -Patient back to normal. No evidence of any encephalopathy. 2. Trimalleolar fracture of the right foot. -Continue pain control. -Nonweightbearing of the right lower extremity. -Orthopedic surgery evaluation ongoing. 3. Leukocytosis. -Patient was started on antibiotics for any aspiration pneumonitis. 4. Dyslipidemia. -Therapeutic lifestyle changes. 5. Fluids, electrolytes, and nutrition. -Regular diet. 6. DVT prophylaxis. -Subcutaneous heparin. 7.-Plan. -Continue supportive care. -Patient is cleared for ORIF of the right foot. -Anesthesiology to contact the supervisor brine prior to surgery. Updated the patient's mother who was at the bedside. The patient was seen in collaboration with Dr. Valle. Result Diagram: 04/23/18 0501 04/23/18 0501 Results 24hrs Laboratory Tests Test 04/22/18 15:07 04/22/18 18:27 04/23/18 00:21 04/23/18 05:01 B-Type 65 Natriuretic Peptide Troponin I 0.032 0.041 0.045 White Blood 14.9 H Count Red Blood Count 3.67 L Hemoglobin 11.4 L Hematocrit 33.8 L Mean 92.1 Corpuscular Volume Mean 31.1 Corpuscular Hemoglobin Mean 33.7 Corpuscular Hemoglobin Conc ent Red Cell 12.1 Distribution Width Platelet Count 311 Mean Platelet 9.9 Volume Immature 0.700 H Granulocytes % Neutrophils % 62.4 Lymphocytes % 29.0 Monocytes % 6.4 Eosinophils % 1.1 Basophils % 0.4 Nucleated Red 0.0 Blood Cells % Immature 0.110 H Granulocytes # Neutrophils # 9.3 H Lymphocytes # 4.3 H Monocytes # 1.0 H Eosinophils # 0.2 Basophils # 0.1 Nucleated Red 0.0 Blood Cells # Sodium Level 141 Potassium Level 4.1 Chloride Level 105 Carbon Dioxide 25 Level Anion Gap 11 Blood Urea 11 Nitrogen Creatinine 0.68 Est Glomerular > 60 Filtrat Rate mL/min Glucose Level 167 Calcium Level 9.3 Phosphorus 3.6 Level Magnesium Level 2.3 Total Bilirubin 0.3 Direct 0.00 Bilirubin Indirect 0.3 Bilirubin Aspartate Amino 68 H Transf (AST/SGO T) Alanine 60 Aminotransferas e (ALT/SGPT) Alkaline 87 Phosphatase Total Protein 7.6 Albumin 4.1 Globulin 3.50 H Albumin/Globuli 1.17 n Ratio Triglycerides 242 H Level Cholesterol 203 H Level LDL 123 Cholesterol, Calculated HDL Cholesterol 32 L Cholesterol/HDL 6.3 Ratio Test 04/23/18 08:34 Lab Scanned REFERENCE LAB Report Exam/Review of Systems Vital Signs Vitals Vital Signs Date Temp Pulse Resp B/P (MAP) Pulse Ox O2 O2 Flow FiO2 Time Delivery Rate 04/23/18 100 08:40 04/23/18 98.1 16 95 07:28 04/22/18 21 20:11 04/22/18 Room Air 20:00 04/22/18 2.0 01:07 Intake and Output 04/22/18 04/22/18 04/23/18 1515:00 23:00 07:00 IntakeIntake Total 900 ml 580 ml OutputOutput Total 1150 ml 500 ml BalanceBalance -250 ml 80 ml Medications Medications Current Medications IV Flush (NS 3 ml) 3 ml PER PROTOCOL IV Last administered on 04/17/18at 03:15; Admin Dose 3 ML; Start 04/17/18 at 02:30 Ondansetron HCl (Zofran Inj) 4 mg Q6H PRN IV NAUSEA AND/OR VOMITING; Start 04/17/18 at 02:30 Acetaminophen (Tylenol Tab) 650 mg Q6H PRN PO PAIN LEVEL 1-3 OR FEVER Last administered on 04/17/18at 14:10; Admin Dose 650 MG; Start 04/17/18 at 02:30 Acetaminophen/ Hydrocodone Bitart ([place] (5/325)) 1 tab Q6H PRN PO MODERATE PAIN LEVEL 4-6 Last administered on 04/21/18at 19:50; Admin Dose 1 TAB; Start 04/17/18 at 02:30 Acetaminophen/ Hydrocodone Bitart ([place] (5/325)) 2 tab Q6H PRN PO SEVERE PAIN LEVEL 7-10 Last administered on 04/23/18at 03:16; Admin Dose 2 TAB; Start 04/17/18 at 02:30 Heparin Sodium (Porcine) (Heparin (5000 Units/1ml)) 5,000 unit Q12 SC Last administered on 04/23/18at 08:38; Admin Dose 5,000 UNIT; Start 04/17/18 at 09:00 Zolpidem Tartrate (Ambien) 5 mg HS PRN PO INSOMNIA; Start 04/17/18 at 21:00 Polyethylene Glycol (Miralax) 17 gm BID PO ; Start 04/19/18 at 21:00 Pantoprazole (Protonix Iv) 40 mg BID@06,18 IV Last administered on 04/23/18at 06:00; Admin Dose 40 MG; Start 04/21/18 at 09:30 Piperacillin Sod/ Tazobactam Sod 100 ml @ 200 mls/hr Q8 IVPB Last administered on 04/23/18at 06:03; Admin Dose 200 MLS/HR; Start 04/21/18 at 14:00 KAYE MILES NP Apr 23, 2018 11:13
--- NOTE | 2018-04-23 13:49 | CONS ---
Date/Time of Note Date/Time of Note DATE: 04/23/18 TIME: 13:48 Consult Date/Type/Reason Admit Date/Time Apr 17, 2018 at 00:18 Initial Consult Date Type of Consultation: Pulm/CCM Subjective Doing well. Now on room air. Objective Vital Signs Date Temp Pulse Resp B/P (MAP) Pulse Ox O2 O2 Flow FiO2 Time Delivery Rate 04/23/18 98.0 97 16 98/54 (69) 93 11:30 04/22/18 21 20:11 04/22/18 Room Air 20:00 04/22/18 2.0 01:07 Intake and Output 04/22/18 04/22/18 04/23/18 1515:00 23:00 07:00 IntakeIntake Total 900 ml 580 ml OutputOutput Total 1150 ml 500 ml BalanceBalance -250 ml 80 ml Exam HEENT: Neck supple; no JVD; no LAD CVS: RRR, S1 and S2 CHEST: Clear ABD: Soft, NT, + BS EXT: No c/c/e Results/Medications Result Diagram: 04/23/18 0501 04/23/18 0501 Results 24 hrs Laboratory Tests Test 04/22/18 15:07 04/22/18 18:27 04/23/18 00:21 04/23/18 05:01 B-Type 65 Natriuretic Peptide Troponin I 0.032 0.041 0.045 White Blood 14.9 H Count Red Blood Count 3.67 L Hemoglobin 11.4 L Hematocrit 33.8 L Mean 92.1 Corpuscular Volume Mean 31.1 Corpuscular Hemoglobin Mean 33.7 Corpuscular Hemoglobin Conc ent Red Cell 12.1 Distribution Width Platelet Count 311 Mean Platelet 9.9 Volume Immature 0.700 H Granulocytes % Neutrophils % 62.4 Lymphocytes % 29.0 Monocytes % 6.4 Eosinophils % 1.1 Basophils % 0.4 Nucleated Red 0.0 Blood Cells % Immature 0.110 H Granulocytes # Neutrophils # 9.3 H Lymphocytes # 4.3 H Monocytes # 1.0 H Eosinophils # 0.2 Basophils # 0.1 Nucleated Red 0.0 Blood Cells # Sodium Level 141 Potassium Level 4.1 Chloride Level 105 Carbon Dioxide 25 Level Anion Gap 11 Blood Urea 11 Nitrogen Creatinine 0.68 Est Glomerular > 60 Filtrat Rate mL/min Glucose Level 167 Calcium Level 9.3 Phosphorus 3.6 Level Magnesium Level 2.3 Total Bilirubin 0.3 Direct 0.00 Bilirubin Indirect 0.3 Bilirubin Aspartate Amino 68 H Transf (AST/SGO T) Alanine 60 Aminotransferas e (ALT/SGPT) Alkaline 87 Phosphatase Total Protein 7.6 Albumin 4.1 Globulin 3.50 H Albumin/Globuli 1.17 n Ratio Triglycerides 242 H Level Cholesterol 203 H Level LDL 123 Cholesterol, Calculated HDL Cholesterol 32 L Cholesterol/HDL 6.3 Ratio Test 04/23/18 08:34 Lab Scanned REFERENCE LAB Report Medications Current Medications IV Flush (NS 3 ml) 3 ml PER PROTOCOL IV Last administered on 04/17/18 03:15; Admin Dose 3 ML; Start 04/17/18 at 02:30 Ondansetron HCl (Zofran Inj) 4 mg Q6H PRN IV NAUSEA AND/OR VOMITING; Start 04/17/18 at 02:30 Acetaminophen (Tylenol Tab) 650 mg Q6H PRN PO PAIN LEVEL 1-3 OR FEVER Last administered on 04/17/18at 14:10; Admin Dose 650 MG; Start 04/17/18 at 02:30 Acetaminophen/ Hydrocodone Bitart ([place] (5/325)) 1 tab Q6H PRN PO MODERATE PAIN LEVEL 4-6 Last administered on 04/21/18at 19:50; Admin Dose 1 TAB; Start 04/17/18 at 02:30 Acetaminophen/ Hydrocodone Bitart ([place] (5/325)) 2 tab Q6H PRN PO SEVERE PAIN LEVEL 7-10 Last administered on 04/23/18at 03:16; Admin Dose 2 TAB; Start 04/17/18 at 02:30 Heparin Sodium (Porcine) (Heparin (5000 Units/1ml)) 5,000 unit Q12 SC Last administered on 04/23/18at 08:38; Admin Dose 5,000 UNIT; Start 04/17/18 at 09:00 Zolpidem Tartrate (Ambien) 5 mg HS PRN PO INSOMNIA; Start 04/17/18 at 21:00 Polyethylene Glycol (Miralax) 17 gm BID PO ; Start 04/19/18 at 21:00 Pantoprazole (Protonix Iv) 40 mg BID@,18 IV Last administered on 04/23/18at 06:00; Admin Dose 40 MG; Start 04/21/18 at 09:30 Piperacillin Sod/ Tazobactam Sod 100 ml @ 200 mls/hr Q8 IVPB Last administered on 04/23/18at 06:03; Admin Dose 200 MLS/HR; Start 04/21/18 at 14:00 Assessment/Plan Additional Assessment/Plan IMP: 1. Acute respiratory failure--2/2 negative pressure pulm amandeep (NPPE). NPPE nesults from generation of high negative intrathoracic pressures needed to overcome an obstructed airway, particularly common in young individuals. 2. Trimalleolar fracture of the right foot. 3. Leukocytosis. RECS: 1. Continued monitoring. No need for further diuresis 2. Would consider discussing the case with Anesthesia prior to planned ORIF, particularly as spinal anesthesia may be a reasonable option in view of recent episode of NPPE. DAYNA BAIRD MD Apr 23, 2018 13:49
--- NOTE | 2018-04-23 14:20 | CONS ---
Date/Time of Note Date/Time of Note DATE: 04/23/18 TIME: 14:14 Assessment/Plan Assessment/Plan Hospital Course IMPRESSION: 1. Preoperative evaluation prior to ankle surgery in a patient that had a surgery aborted for episode of hypotension and bradycardia after induction of anesthesia. NL EF by echo/Neg trop x 3. Ok to proceed to OR at moderate cv risk due to previous event. 2. Tachycardia consistent with sinus tachycardia at this time. Electrocardiogram with inferior T-wave flattening. 3. Ankle fracture secondary to activity. 4. Leukocytosis. 5. Anemia, mild. Recc: -Tele -serial ecg's -continue abx's and f/u cx data -Consider alternative anesthesia given previous event during induction. Appreciate pulmonary input Result Diagram: 04/23/18 0501 04/23/18 0501 Results 24hrs Laboratory Tests Test 04/22/18 15:07 04/22/18 18:27 04/23/18 00:21 04/23/18 05:01 B-Type 65 Natriuretic Peptide Troponin I 0.032 0.041 0.045 White Blood 14.9 H Count Red Blood Count 3.67 L Hemoglobin 11.4 L Hematocrit 33.8 L Mean 92.1 Corpuscular Volume Mean 31.1 Corpuscular Hemoglobin Mean 33.7 Corpuscular Hemoglobin Conc ent Red Cell 12.1 Distribution Width Platelet Count 311 Mean Platelet 9.9 Volume Immature 0.700 H Granulocytes % Neutrophils % 62.4 Lymphocytes % 29.0 Monocytes % 6.4 Eosinophils % 1.1 Basophils % 0.4 Nucleated Red 0.0 Blood Cells % Immature 0.110 H Granulocytes # Neutrophils # 9.3 H Lymphocytes # 4.3 H Monocytes # 1.0 H Eosinophils # 0.2 Basophils # 0.1 Nucleated Red 0.0 Blood Cells # Sodium Level 141 Potassium Level 4.1 Chloride Level 105 Carbon Dioxide 25 Level Anion Gap 11 Blood Urea 11 Nitrogen Creatinine 0.68 Est Glomerular > 60 Filtrat Rate mL/min Glucose Level 167 Calcium Level 9.3 Phosphorus 3.6 Level Magnesium Level 2.3 Total Bilirubin 0.3 Direct 0.00 Bilirubin Indirect 0.3 Bilirubin Aspartate Amino 68 H Transf (AST/SGO T) Alanine 60 Aminotransferas e (ALT/SGPT) Alkaline 87 Phosphatase Total Protein 7.6 Albumin 4.1 Globulin 3.50 H Albumin/Globuli 1.17 n Ratio Triglycerides 242 H Level Cholesterol 203 H Level LDL 123 Cholesterol, Calculated HDL Cholesterol 32 L Cholesterol/HDL 6.3 Ratio Test 04/23/18 08:34 Lab Scanned REFERENCE LAB Report Consultation Date/Type/Reason Admit Date/Time Apr 17, 2018 at 00:18 Initial Consult Date 04/22/18 Type of Consult cardiology Reason for Consultation preop Requesting Provider: KAYE MILES AUTOMOTIVE MECHANICAL ENGINEER Exam/Review of Systems Vital Signs Vitals Vital Signs Date Temp Pulse Resp B/P (MAP) Pulse Ox O2 O2 Flow FiO2 Time Delivery Rate 04/23/18 98.0 97 16 98/54 (69) 93 11:30 04/22/18 21 20:11 04/22/18 Room Air 20:00 04/22/18 2.0 01:07 Intake and Output 04/22/18 04/22/18 04/23/18 1515:00 23:00 07:00 IntakeIntake Total 900 ml 580 ml OutputOutput Total 1150 ml 500 ml BalanceBalance -250 ml 80 ml Exam Review of Systems: CONSTITUTIONAL: No fevers, chills. PULMONARY: No sob CARDIOVASCULAR: No chest pain/palpitations GASTROINTESTINAL: No nausea/vomiting. GENITOURINARY: No hematuria/dysuria. MUSCULOSKELETAL: No myagias/arthalgias. PSYCHIATRIC: The patient denies depression. NEUROLOGIC: No weakness Constitutional: alert Psych: no complaints Head: normocephalic ENMT: mucosa pink and moist Neck: supple, jvd (8 cm water) Respiratory: clear to auscultation Cardiovascular: regular rate and rhythm Gastrointestinal: soft, non-tender Musculoskeletal: muscle tone (normal) Extremities: edema (none) Neurological: other (No focal deficits) Medications Medications Current Medications IV Flush (NS 3 ml) 3 ml PER PROTOCOL IV Last administered on 04/17/18at 03:15; Admin Dose 3 ML; Start 04/17/18 at 02:30 Ondansetron HCl (Zofran Inj) 4 mg Q6H PRN IV NAUSEA AND/OR VOMITING; Start 04/17/18 at 02:30 Acetaminophen (Tylenol Tab) 650 mg Q6H PRN PO PAIN LEVEL 1-3 OR FEVER Last administered on 04/17/18at 14:10; Admin Dose 650 MG; Start 04/17/18 at 02:30 Acetaminophen/ Hydrocodone Bitart ([place] (5/325)) 1 tab Q6H PRN PO MODERATE PAIN LEVEL 4-6 Last administered on 04/21/18at 19:50; Admin Dose 1 TAB; Start 04/17/18 at 02:30 Acetaminophen/ Hydrocodone Bitart ([place] (5/325)) 2 tab Q6H PRN PO SEVERE PAIN LEVEL 7-10 Last administered on 04/23/18at 03:16; Admin Dose 2 TAB; Start 04/17/18 at 02:30 Heparin Sodium (Porcine) (Heparin (5000 Units/1ml)) 5,000 unit Q12 SC Last administered on 04/23/18at 08:38; Admin Dose 5,000 UNIT; Start 04/17/18 at 09:00 Zolpidem Tartrate (Ambien) 5 mg HS PRN PO INSOMNIA; Start 04/17/18 at 21:00 Polyethylene Glycol (Miralax) 17 gm BID PO ; Start 04/19/18 at 21:00 Pantoprazole (Protonix Iv) 40 mg BID@06,18 IV Last administered on 04/23/18at 06:00; Admin Dose 40 MG; Start 04/21/18 at 09:30 Piperacillin Sod/ Tazobactam Sod 100 ml @ 200 mls/hr Q8 IVPB Last administered on 04/23/18at 14:02; Admin Dose 200 MLS/HR; Start 04/21/18 at 14:00 MIRA MILLER Apr 23, 2018 14:20
--- NOTE | 2018-04-23 17:58 | NUR ---
EOSS PT STILL CONFUSED. BP WAS ELEVATED, DR. HAHN WITH NEW ORDER. MRI DONE PENDING RESULT. WILL TRY LUMBAR PUNCTURE AGAIN MAYBE [place]. Addendum: 04/23/18 at 1800 by LUC MENDES RN WRONG PT CHARTING
--- NOTE | 2018-04-23 18:01 | NUR ---
EOSS NO SIGNIFICANT CHANGES THIS SHIFT. DENIES PAIN. NO SCHEDULE FOR SURGERY AT THIS POINT. CLEARED BY PULMO AND CARDIO.
--- NOTE | 2018-04-23 18:44 | OPPN ---
Date/Time of Note Date/Time of Note DATE: 04/23/18 TIME: 18:11 Event Note Anesthesia note: There seems to be a misunderstanding as far as how the events occurred in the OR on 04/20/2018. On the afternoon of surgery and in the OR, patient was minimally sedated and awake during the nerve block and she was intubated immediately after 50 mg of Rocuronium. Patient was easily ventilated for about 45 seconds between the induction and intubation and there was no chance of 1- Negative pressure (patient was paralyzed) and 2- Airway obstruction (patient was either ventilated or intubated continuously) hence very low probability of "negative pressure pulmonary edema". The event started with a sudden and severe drop in ETCO2 followed by severe desaturation and severe hypotension which pointed towards sudden drop in pulmonary perfusion and in my opinion high possibility of either significant pulmonary embolism or fat embolism. The event was witnessed by Dr Henry from anesthesia as well. This was clearly communicated with Yao Lopez, Dr Paniagua (over the phone) and the patient's whole family. and I am glad that the patient has had a significant recovery so far. I have been following and will be following up on the patient's study results and as far as the next anesthetic, I doubt that general anesthesia or regional anesthesia will recreate the same event since it seems very unlikely that the event occurred due to airway management or drug side effects; but on the other hand I agree that longer acting spinal anesthesia may be a better choice due to the timing of the case and sensitivity of the event. Thanks, Romulo Castaneda MD, M.D. Apr 23, 2018 18:44
[2018-04-24] VITALS (8 sets, daily range): BP systolic 100–128; BP diastolic 56–70; PULSE 86–113; RESP 16–18
[2018-04-24] MEDS: HYDROCODONE/APAP (5/325) TAB PO PRN ×2 (03:51→19:29)
[2018-04-24] MEDS: PANTOPRAZOLE 40 MG INJ IV SCH ×2 (05:40→17:08)
[2018-04-24] MEDS: PIPER-TAZO 3.375 GM IV (PMX) 100 ML IVPB SCH ×3 (05:40→21:35)
--- NOTE | 2018-04-24 06:19 | NUR ---
EOSS Pt a/o x4 Vital signs stable Pt given norco for pain No significant changes- continue to monitor Hourly rounding completed, call light within reach, family at bedside.
[2018-04-24] MEDS: POLYETHYLENE GLYCOL 17 GM PACKET PO SCH ×2 (08:57→21:00)
[2018-04-24] MEDS: HEPARIN 5,000 UNIT/1 ML VIAL SC SCH ×2 (09:02→21:33)
--- NOTE | 2018-04-24 11:45 | NUR ---
SS NOTE: LOS SPOKE WITH PT AND PT'S FRIEND, YAYA, AT BEDSIDE FOR LOS SUPPORT WITH PT'S CONSENT FOR FRIEND TO PARTICIPATE IN CONVERSATION. PT LIVES WITH MOTHER, 2 SISTERS AND 3 BROTHERS IN A HOUSE @ [address] [place]. PT IS SINGLE WITHOUT CHILDREN. 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 PT REPORTED SHE FRACTURED HER ANKLE DOING CARTWHEELS. PT DENIED ANY SUBSTANCE USE. NO NEEDS AT THIS TIME. PLAN IS FOR PT TO RETURN HOME AND SISTER, DEBORA, WILL DRIVE PT HOME AT DISCHARGE. Addendum: 04/24/18 at 1148 by EVELYN LUGO Amended: Links added.
--- NOTE | 2018-04-24 11:47 | CONS ---
Date/Time of Note Date/Time of Note DATE: 04/24/18 TIME: 11:46 Consult Date/Type/Reason Admit Date/Time Apr 17, 2018 at 00:18 Initial Consult Date Type of Consultation: Pulm/CCM Requesting Provider: KAYE MILES FINANCIAL SUPERVISOR Subjective Patient remained stable. No new events Objective Vital Signs Date Temp Pulse Resp B/P (MAP) Pulse Ox O2 O2 Flow FiO2 Time Delivery Rate 04/24/18 98.3 86 16 104/56 96 11:16 (72) 04/22/18 21 20:11 04/22/18 Room Air 20:00 04/22/18 2.0 01:07 Intake and Output 04/23/18 04/23/18 04/24/18 1515:00 23:00 07:00 IntakeIntake Total 100 ml 950 ml 100 ml BalanceBalance 100 ml 950 ml 100 ml Exam GENERAL: Well-nourished well-developed lady comfortable at rest no acute distress VITAL SIGNS: per chart NECK: Supple. No JVD or lymphadenopathy. CARDIAC EXAM: S1, S2. No added sounds or murmurs. CHEST: clear bilaterally, No added sounds, rales or wheezes ABDOMEN: Soft, nontender. No guarding or rebound. EXTREMITIES: No cyanosis, clubbing or edema. NEUROLOGIC: Generalized weakness. No focal deficits. Results/Medications Result Diagram: 04/24/18 0502 04/24/18 0502 Results 24 hrs Laboratory Tests Test 04/24/18 05:02 White Blood Count 12.4 H Red Blood Count 3.65 L Hemoglobin 11.3 L Hematocrit 33.8 L Mean Corpuscular Volume 92.6 Mean Corpuscular Hemoglobin 31.0 Mean Corpuscular Hemoglobin Concent 33.4 Red Cell Distribution Width 11.8 Platelet Count 350 Mean Platelet Volume 10.1 Immature Granulocytes % 1.400 H Neutrophils % 56.2 Lymphocytes % 32.5 Monocytes % 7.4 Eosinophils % 1.9 Basophils % 0.6 Nucleated Red Blood Cells % 0.0 Immature Granulocytes # 0.170 H Neutrophils # 7.0 Lymphocytes # 4.0 H Monocytes # 0.9 Eosinophils # 0.2 Basophils # 0.1 Nucleated Red Blood Cells # 0.0 Sodium Level 141 Potassium Level 4.3 Chloride Level 106 Carbon Dioxide Level 27 Anion Gap 8 Blood Urea Nitrogen 10 Creatinine 0.63 Est Glomerular Filtrat Rate mL/min > 60 Glucose Level 98 # Calcium Level 9.6 Phosphorus Level 4.6 Magnesium Level 2.2 Medications Current Medications IV Flush (NS 3 ml) 3 ml PER PROTOCOL IV Last administered on 04/17/18 03:15; Admin Dose 3 ML; Start 04/17/18 at 02:30 Ondansetron HCl (Zofran Inj) 4 mg Q6H PRN IV NAUSEA AND/OR VOMITING; Start 04/17/18 at 02:30 Acetaminophen (Tylenol Tab) 650 mg Q6H PRN PO PAIN LEVEL 1-3 OR FEVER Last administered on 04/17/18 14:10; Admin Dose 650 MG; Start 04/17/18 at 02:30 Acetaminophen/ Hydrocodone Bitart ([place] (5/325)) 1 tab Q6H PRN PO MODERATE PAIN LEVEL 4-6 Last administered on 04/21/18at 19:50; Admin Dose 1 TAB; Start 04/17/18 at 02:30 Acetaminophen/ Hydrocodone Bitart ([place] (5/325)) 2 tab Q6H PRN PO SEVERE PAIN LEVEL 7-10 Last administered on 04/24/18at 03:51; Admin Dose 2 TAB; Start 04/17/18 at 02:30 Heparin Sodium (Porcine) (Heparin (5000 Units/1ml)) 5,000 unit Q12 SC Last administered on 04/24/18at 09:02; Admin Dose 5,000 UNIT; Start 04/17/18 at 09 :00 Zolpidem Tartrate (Ambien) 5 mg HS PRN PO INSOMNIA; Start 04/17/18 at 21:00 Polyethylene Glycol (Miralax) 17 gm BID PO ; Start 04/19/18 at 21:00 Pantoprazole (Protonix Iv) 40 mg BID@06,18 IV Last administered on 04/24/18at 05:40; Admin Dose 40 MG; Start 04/21/18 at 09:30 Piperacillin Sod/ Tazobactam Sod 100 ml @ 200 mls/hr Q8 IVPB Last administered on 04/24/18at 05:40; Admin Dose 200 MLS/HR; Start 04/21/18 at 14:00 Assessment/Plan Chief Complaint/Hosp Course IMP: 1. Acute respiratory failure--2/2 negative pressure pulm amandeep (NPPE). NPPE results from generation of high negative intrathoracic pressures needed to overcome an obstructed airway, particularly common in young individuals. 2. Trimalleolar fracture of the right foot. 3. Leukocytosis. RECS: 1. Continued monitoring. No need for further diuresis 2. Would consider discussing the case with Anesthesia prior to planned ORIF, particularly as spinal anesthesia may be a reasonable option in view of recent episode of NPPE. SAMARIA BELTRAN MD, [facility] Apr 24, 2018 11:47
--- NOTE | 2018-04-24 14:07 | CONS ---
Date/Time of Note Date/Time of Note DATE: 04/24/18 TIME: 14:03 Assessment/Plan Assessment/Plan Hospital Course IMPRESSION: 1. Preoperative evaluation prior to ankle surgery in a patient that had a surgery aborted for episode of hypotension and bradycardia after induction of anesthesia. NL EF by echo/Neg trop x 3. Ok to proceed to OR at moderate cv risk due to previous event. 2. Tachycardia consistent with sinus tachycardia at this time. Electrocardiogram with inferior T-wave flattening. 3. Ankle fracture secondary to activity. 4. Leukocytosis. 5. Anemia, mild. Recc: -Tele -serial ecg's -continue abx's and f/u cx data -Consider alternative anesthesia given previous event during induction. Appreciate pulmonary input Result Diagram: 04/24/18 0502 04/24/18 0502 Results 24hrs Laboratory Tests Test 04/24/18 05:02 White Blood Count 12.4 H Red Blood Count 3.65 L Hemoglobin 11.3 L Hematocrit 33.8 L Mean Corpuscular Volume 92.6 Mean Corpuscular Hemoglobin 31.0 Mean Corpuscular Hemoglobin Concent 33.4 Red Cell Distribution Width 11.8 Platelet Count 350 Mean Platelet Volume 10.1 Immature Granulocytes % 1.400 H Neutrophils % 56.2 Lymphocytes % 32.5 Monocytes % 7.4 Eosinophils % 1.9 Basophils % 0.6 Nucleated Red Blood Cells % 0.0 Immature Granulocytes # 0.170 H Neutrophils # 7.0 Lymphocytes # 4.0 H Monocytes # 0.9 Eosinophils # 0.2 Basophils # 0.1 Nucleated Red Blood Cells # 0.0 Sodium Level 141 Potassium Level 4.3 Chloride Level 106 Carbon Dioxide Level 27 Anion Gap 8 Blood Urea Nitrogen 10 Creatinine 0.63 Est Glomerular Filtrat Rate mL/min > 60 Glucose Level 98 # Calcium Level 9.6 Phosphorus Level 4.6 Magnesium Level 2.2 Consultation Date/Type/Reason Admit Date/Time Apr 17, 2018 at 00:18 Initial Consult Date 04/22/18 Type of Consult cardiology Reason for Consultation preop Requesting Provider: KAYE MILES LEAD ENTERPRISE ARCHITECT Exam/Review of Systems Vital Signs Vitals Vital Signs Date Temp Pulse Resp B/P (MAP) Pulse Ox O2 O2 Flow FiO2 Time Delivery Rate 04/24/18 98.3 86 16 104/56 96 11:16 (72) 04/22/18 21 20:11 04/22/18 Room Air 20:00 04/22/18 2.0 01:07 Intake and Output 04/23/18 04/23/18 04/24/18 1515:00 23:00 07:00 IntakeIntake Total 100 ml 950 ml 100 ml BalanceBalance 100 ml 950 ml 100 ml Exam Review of Systems: CONSTITUTIONAL: No fevers, chills. PULMONARY: No sob CARDIOVASCULAR: No chest pain/palpitations GASTROINTESTINAL: No nausea/vomiting. GENITOURINARY: No hematuria/dysuria. MUSCULOSKELETAL: No myagias/arthalgias. PSYCHIATRIC: The patient denies depression. NEUROLOGIC: No weakness Constitutional: alert Psych: no complaints Head: normocephalic ENMT: mucosa pink and moist Neck: supple, jvd (8 cm water) Respiratory: clear to auscultation Cardiovascular: regular rate and rhythm Gastrointestinal: soft, non-tender Musculoskeletal: muscle tone (normal) Extremities: edema (none) Neurological: other (No focal deficits) Medications Medications Current Medications IV Flush (NS 3 ml) 3 ml PER PROTOCOL IV Last administered on 04/17/18at 03:15; Admin Dose 3 ML; Start 04/17/18 at 02:30 Ondansetron HCl (Zofran Inj) 4 mg Q6H PRN IV NAUSEA AND/OR VOMITING; Start 04/17/18 at 02:30 Acetaminophen (Tylenol Tab) 650 mg Q6H PRN PO PAIN LEVEL 1-3 OR FEVER Last administered on 04/17/18at 14:10; Admin Dose 650 MG; Start 04/17/18 at 02:30 Acetaminophen/ Hydrocodone Bitart ([place] (5/325)) 1 tab Q6H PRN PO MODERATE PAIN LEVEL 4-6 Last administered on 04/21/18at 19:50; Admin Dose 1 TAB; Start 04/17/18 at 02:30 Acetaminophen/ Hydrocodone Bitart ([place] (5/325)) 2 tab Q6H PRN PO SEVERE PAIN LEVEL 7-10 Last administered on 04/24/18 03:51; Admin Dose 2 TAB; Start 04/17/18 at 02:30 Heparin Sodium (Porcine) (Heparin (5000 Units/1ml)) 5,000 unit Q12 SC Last administered on 04/24/18 09:02; Admin Dose 5,000 UNIT; Start 04/17/18 at 09:00 Zolpidem Tartrate (Ambien) 5 mg HS PRN PO INSOMNIA; Start 04/17/18 at 21:00 Polyethylene Glycol (Miralax) 17 gm BID PO ; Start 04/19/18 at 21:00 Pantoprazole (Protonix Iv) 40 mg BID@06,18 IV Last administered on 04/24/18at 05:40; Admin Dose 40 MG; Start 04/21/18 at 09:30 Piperacillin Sod/ Tazobactam Sod 100 ml @ 200 mls/hr Q8 IVPB Last administered on 04/24/18at 05:40; Admin Dose 200 MLS/HR; Start 04/21/18 at 14:00 MIRA MILLER Apr 24, 2018 14:07
--- NOTE | 2018-04-24 15:55 | NUR ---
TRANSFER: Patient tx to M/S 2NE Room 2280. AAOx4, VSS, denies pain or SOB. Tele monitor removed. IV access patent. All belongings transferred w/ patient. Family made aware of tx. Report given to SHANNAN Mina.
--- NOTE | 2018-04-24 16:00 | NUR ---
RECEIVED REPORT FROM SHANNAN ANGELO. PT RECEIVED IN 2NE RM 2280 IN STABLE CONDITION. VSS. PT ORIENTED TO ROOM. CALL LIGHT PLACED WITHIN REACH. WILL CONTINUE WITH POC.
--- NOTE | 2018-04-24 17:00 | NUR ---
ENDORSED CARE TO SHANNAN MARSHALL. PT IN STABLE CONDITION.
--- NOTE | 2018-04-24 17:01 | NUR ---
RECEIVED ENDORSEMENT FROM [facility] RN WHO IS GETTING FLEXED RN. PT IN STABLE CONDITION. WILL RESUME CARE AT THIS POINT.
--- NOTE | 2018-04-24 18:44 | NUR ---
END OF SHIFT NOTES: PT STABLE, ALERT & ORIENTED X4. NO DISTRESS NOTED. OBTAINED CONSENT FOR APR 26 PENDING SURGERY TO BE DONE BY DR. GUNN. INSTRUCTED PT TO CALL FOR ASSISTANCE. VS WNL.HOURLY ROUNDING. CALL LIGHT WITHIN REACH.ALL NEEDS MET. NO NEW COMPLAINTS
[2018-04-25 02:10] VITALS: BP 107/71; PULSE 86; RESP 18
[2018-04-25] MEDS: HYDROCODONE/APAP (5/325) TAB PO PRN ×3 (03:17→21:05)
[2018-04-25] MEDS: PIPER-TAZO 3.375 GM IV (PMX) 100 ML IVPB SCH ×3 (05:14→21:05)
[2018-04-25] MEDS: PANTOPRAZOLE 40 MG INJ IV SCH ×2 (05:14→17:10)
--- NOTE | 2018-04-25 06:09 | NUR ---
EOSS No acute changes in patient's condition. VS WNL. A&Ox4. All due meds given. Pt c/o 07/02 pain. Pain meds given. Pain meds effective. Hourly rounding done. Bed left in lowest position with bed alarm on. Call light left within reach.
[2018-04-25 07:41] VITALS: BP 92/57; PULSE 79; RESP 15
[2018-04-25] MEDS: HEPARIN 5,000 UNIT/1 ML VIAL SC SCH ×3 (09:00→21:10)
[2018-04-25] MEDS: POLYETHYLENE GLYCOL 17 GM PACKET PO SCH ×2 (09:00→21:00)
--- NOTE | 2018-04-25 10:31 | NUR ---
NURSES NOTES: SPOKE TO DR. GILLILAND RE: PT SCHEDULED FOR ORIF TOMORROW AND CURRENTLY ON HEPARIN SQ. NEW ORDER RECEIVED TO HOLD HEPARIN AT THIS TIME.
--- NOTE | 2018-04-25 13:31 | CONS ---
Date/Time of Note Date/Time of Note DATE: 04/25/18 TIME: 13:30 Assessment/Plan Assessment/Plan Hospital Course IMPRESSION: 1. Preoperative evaluation prior to ankle surgery in a patient that had a surgery aborted for episode of hypotension and bradycardia after induction of anesthesia. NL EF by echo/Neg trop x 3. Ok to proceed to OR at moderate cv risk due to previous event. 2. Tachycardia consistent with sinus tachycardia at this time. Electrocardiogram with inferior T-wave flattening. 3. Ankle fracture secondary to activity. 4. Leukocytosis. 5. Anemia, mild. Recc: -Tele -serial ecg's -continue abx's and f/u cx data -Consider alternative anesthesia given previous event during induction. Appreciate pulmonary input -pnding repeat surgery Result Diagram: 04/24/18 0502 04/24/18 0502 Consultation Date/Type/Reason Admit Date/Time Apr 17, 2018 at 00:18 Initial Consult Date 04/22/18 Type of Consult cardiology Reason for Consultation Preop Requesting Provider: KAYE MILES ASSESSMENT RN Exam/Review of Systems Vital Signs Vitals Vital Signs Date Temp Pulse Resp B/P (MAP) Pulse Ox O2 O2 Flow FiO2 Time Delivery Rate 04/25/18 97.7 79 15 92/57 (69) 97 07:41 04/24/18 Room Air 16:00 04/22/18 21 20:11 04/22/18 2.0 01:07 Intake and Output 04/24/18 04/24/18 04/25/18 1515:00 23:00 07:00 IntakeIntake Total 200 ml 100 ml BalanceBalance 200 ml 100 ml Exam Review of Systems: CONSTITUTIONAL: No fevers, chills. PULMONARY: No sob CARDIOVASCULAR: No chest pain/palpitations GASTROINTESTINAL: No nausea/vomiting. GENITOURINARY: No hematuria/dysuria. MUSCULOSKELETAL: No myagias/arthalgias. PSYCHIATRIC: The patient denies depression. NEUROLOGIC: No weakness Constitutional: alert Psych: no complaints Head: normocephalic ENMT: mucosa pink and moist Neck: supple, jvd (9 cm water) Respiratory: clear to auscultation Cardiovascular: regular rate and rhythm Gastrointestinal: soft, non-tender Musculoskeletal: muscle tone (normal) Extremities: edema (none) Neurological: other (No focal deficits) Medications Medications Current Medications IV Flush (NS 3 ml) 3 ml PER PROTOCOL IV Last administered on 04/17/18 03:15; Admin Dose 3 ML; Start 04/17/18 at 02:30 Ondansetron HCl (Zofran Inj) 4 mg Q6H PRN IV NAUSEA AND/OR VOMITING; Start 04/17/18 at 02:30 Acetaminophen (Tylenol Tab) 650 mg Q6H PRN PO PAIN LEVEL 1-3 OR FEVER Last administered on 04/17/18at 14:10; Admin Dose 650 MG; Start 04/17/18 at 02:30 Acetaminophen/ Hydrocodone Bitart ([place] (5/325)) 1 tab Q6H PRN PO MODERATE PAIN LEVEL 4-6 Last administered on 04/25/18 12:32; Admin Dose 1 TAB; Start 04/17/18 at 02:30 Acetaminophen/ Hydrocodone Bitart ([place] (5/325)) 2 tab Q6H PRN PO SEVERE PAIN LEVEL 7-10 Last administered on 04/24/18 03:51; Admin Dose 2 TAB; Start 04/17/18 at 02:30 Heparin Sodium (Porcine) (Heparin (5000 Units/1ml)) 5,000 unit Q12 SC Last administered on 04/24/18 21:33; Admin Dose 5,000 UNIT; Start 04/17/18 at 09:00; Status Hold Zolpidem Tartrate (Ambien) 5 mg HS PRN PO INSOMNIA; Start 04/17/18 at 21:00 Polyethylene Glycol (Miralax) 17 gm BID PO ; Start 04/19/18 at 21:00 Pantoprazole (Protonix Iv) 40 mg BID@06,18 IV Last administered on 04/25/18 05:14; Admin Dose 40 MG; Start 04/21/18 at 09:30 Piperacillin Sod/ Tazobactam Sod 100 ml @ 200 mls/hr Q8 IVPB Last administered on 04/25/18 05:14; Admin Dose 200 MLS/HR; Start 04/21/18 at 14:00 MIRA MILLER Apr 25, 2018 13:31
--- NOTE | 2018-04-25 14:08 | PN ---
Date/Time of Note Date/Time of Note DATE: 04/25/18 TIME: 13:48 Assessment/Plan VTE Prophylaxis Risk score (from Ns)>0 risk: 8 SCD applied (from Ns): No SCD contraindicated: other Pharmacological prophylaxis: heparin Lines/Catheters IV [facility]from [facility] Peripheral IV Urinary Cath still in place: No Assessment/Plan Hospital Course SUBJECTIVE: Patient had no acute events overnight. OBJECTIVE: Physical Exam General: lying in bed in no apparent distress. HEENT: Normocephalic, atraumatic. Eyes: Anicteric sclerae, conjunctivae clear. ENT: Nasal septum midline, oral mucosa moist. Neck supple. Respiratory: Bilaterally clear breath sounds. No use of accessory muscles of respiration. Cardiovascular: S1, S2 heard. Regular rate and rhythm. Abdomen: Soft, nontender, and nondistended. Bowel sounds positive in all 4 quadrants. Genitourinary: Deferred. Extremities: No cyanosis, no clubbing. Right leg in a long dressing to the mid femur level. Able to move toes on the right foot. Neurologic: No focal deficits ASSESSMENT & PLAN: 17-year-old female who denies any significant past medical history who initially went to [facility] emergency room with right foot pain after she had an exercise related injury. X-ray of the right foot at [facility] emergency room showed trimalleolar fracture. The ER physician tried manipulative reduction with a repeat x-ray showing alignment of the fracture with soft tissue swelling. The patient was transferred to [facility] for further evaluation because of insurance reasons. The patient was taken to the OR on 04/20/2018 for a right foot ORIF. After anesthesia induction, the patient went into hypotension and bradycardia, also flash pulmonary edema that necessitated aborting the procedure and transferring the patient to intensive care unit. 1. Acute respiratory failure on 04/20/2018- had foot fracture repair surgery aborted for episode of hypotension and bradycardia after induction of anesthesia at that time.also patient had hypoxic-Etiology could be secondary to flash pulmonary edema as well? -2D echocardiogram showed preserved left ventricular ejection fraction.-Bilateral lower extremity venous Doppler study negative for any DVT.-Extubated on 04/21/2018. -Patient back to normal. No evidence of any encephalopathy. -Monitor, Per cardiology assessment, NL EF by echo/Neg trop x 3. State ok to proceed to OR at moderate cv risk due to previous event -although recommending possibly try different anesthesia agent/method this time? 2. Trimalleolar fracture of the right foot -see #1 -Continue pain control. -Nonweightbearing of the right lower extremity. -Orthopedic surgery evaluation ongoing -they are planning for another surgica l attempt in 24 hours, but want anesthesia to first come by and evaluate the patient today. Spoke with house carpenter helper today, apparently the anesthesiologist who was chief engineering division today already left for the day. We will try to reach out with the head of the department of anesthesia and explain the situ ation in anticipation of surgery in the next 24 hours. 3. Leukocytosis.-Still present, unclear source, no fevers. - Patient was started on antibiotics for any aspiration pneumonitis, continue for now 4. Dyslipidemia. -Therapeutic lifestyle changes. 5. Fluids, electrolytes, and nutrition. -Regular diet. 6. DVT prophylaxis. -Subcutaneous heparin. 7.-Plan. -Continue supportive care. -Again, likely for another attempt of ORIF of the right foot in 24 hours Result Diagram: 04/24/18 0502 04/24/18 0502 Exam/Review of Systems Vital Signs Vitals Vital Signs Date Temp Pulse Resp B/P (MAP) Pulse Ox O2 O2 Flow FiO2 Time Delivery Rate 04/25/18 97.7 79 15 92/57 (69) 97 07:41 04/24/18 Room Air 16:00 04/22/18 21 20:11 04/22/18 2.0 01:07 Intake and Output 04/24/18 04/24/18 04/25/18 1515:00 23:00 07:00 IntakeIntake Total 200 ml 100 ml BalanceBalance 200 ml 100 ml Medications Medications Current Medications IV Flush (NS 3 ml) 3 ml PER PROTOCOL IV Last administered on 04/17/18at 03:15; Admin Dose 3 ML; Start 04/17/18 at 02:30 Ondansetron HCl (Zofran Inj) 4 mg Q6H PRN IV NAUSEA AND/OR VOMITING; Start 04/17/18 at 02:30 Acetaminophen (Tylenol Tab) 650 mg Q6H PRN PO PAIN LEVEL 1-3 OR FEVER Last administered on 04/17/18at 14:10; Admin Dose 650 MG; Start 04/17/18 at 02:30 Acetaminophen/ Hydrocodone Bitart ([place] (5/325)) 1 tab Q6H PRN PO MODERATE PAIN LEVEL 4-6 Last administered on 04/25/18at 12:32; Admin Dose 1 TAB; Start 04/17/18 at 02:30 Acetaminophen/ Hydrocodone Bitart ([place] (5/325)) 2 tab Q6H PRN PO SEVERE PAIN LEVEL 7-10 Last administered on 04/24/18at 03:51; Admin Dose 2 TAB; Start 04/17/18 at 02:30 Zolpidem Tartrate (Ambien) 5 mg HS PRN PO INSOMNIA; Start 04/17/18 at 21:00 Polyethylene Glycol (Miralax) 17 gm BID PO ; Start 04/19/18 at 21:00 Pantoprazole (Protonix Iv) 40 mg BID@06,18 IV Last administered on 04/25/18at 05:14; Admin Dose 40 MG; Start 04/21/18 at 09:30 Piperacillin Sod/ Tazobactam Sod 100 ml @ 200 mls/hr Q8 IVPB Last administered on 04/25/18at 13:47; Admin Dose 200 MLS/HR; Start 04/21/18 at 14:00 Heparin Sodium (Porcine) (Heparin (5000 Units/1ml)) 5,000 unit BID SC ; Start 04/25/18 at 14:00; Stop 04/26/18 at 09:00 ILYA SAMUEL Apr 25, 2018 14:06
[2018-04-25 14:38] VITALS: BP 104/60; PULSE 76; RESP 14
--- NOTE | 2018-04-25 18:30 | NUR ---
SHIFT SUMMARY: NO SIGNIFICANT CHANGE OF CONDITION NO RESPIRATORY DISTRESS NOTED DURING SHIFT. RT LEG CAST IN PLACE GOOD CAPILLARY REFILL NOTED. PT INSTRUCTED TO KEEP NPO AFTER MN FOR SCHEDULED SURGERY. PT VERBALIZED UNDERSTANDING WELL PT COMFORTABLE DURING SHIFT. HOURLY ROUNDING RENDERED. CONT ON ABX THERAPY W/O ADVERSE REACTION NOTED. ALL NEEDS ATTENDED AND RENDERED. SAFETY PRECAUTIONS MAINTAINED.CALL LIGHT WITHIN REACH.
[2018-04-25 20:12] VITALS: BP 96/62; PULSE 91; RESP 16
[2018-04-26] VITALS (28 sets, daily range): BP systolic 98–141; BP diastolic 57–82; PULSE 78–128; RESP 16–26
--- NOTE | 2018-04-26 00:30 | NUR ---
re: spoke with Dr. Cobian spoke with Dr. Cobian, pt to remain npo after midnight for surgery. consent in chart. informed him of anesthesia not having seen the patient for eval yet, aware and notified, to be done in AM.
--- NOTE | 2018-04-26 04:41 | NUR ---
re: shift summary patient is alert and oriented, vss, no signs of distress noted. npo past midnight today for surgery today, consent signed and in chart. remains free from injury and falls. right foot dressing intact, clean and dry. will continue to monitor.
[2018-04-26] MEDS: PIPER-TAZO 3.375 GM IV (PMX) 100 ML IVPB SCH ×3 (05:29→23:06)
[2018-04-26] MEDS: PANTOPRAZOLE 40 MG INJ IV SCH ×2 (05:29→17:47)
[2018-04-26] MEDS ORDERED: morphine SULFATE/PF (2 MG/2 ML) SYG IV PRN (06:30)
[2018-04-26] MEDS ORDERED: SEVOFLURANE 15 MIN ONE (07:00)
--- NOTE | 2018-04-26 08:42 | PREAC ---
Date/Time of Note Date/Time of Note DATE: 04/26/18 TIME: 08:36 Anesthesia Eval and Record Evaluation Time Pre-Procedure Interview DATE: 04/26/18 TIME: 08:36 Age 17 Sex female NPO: 8 hrs Preoperative diagnosis R trimalleolar fracture Planned procedure ORIF R trimalleolar fracture Past Medical History Past Medical History: Includes (hx of bradycardia and hypotension intraop durin g patient's ankle surgery) Cardio: Dyslipidemia Surgery & Anesthesia Issues Other issues (during the first attempt for a R ankle ORIF on this current hospit al admission, pt developed bradycardia and hypotension necessitating ICU admission ) Meds Anticoagulation: No Beta Loraine within 24 hr: No Reason Beta Loraine not given: Pt. not on B-Loraine Current Medications IV Flush (NS 3 ml) 3 ml PER PROTOCOL IV Last administered on 04/17/18at 03:15; Admin Dose 3 ML; Start 04/17/18 at 02:30 Ondansetron HCl (Zofran Inj) 4 mg Q6H PRN IV NAUSEA AND/OR VOMITING; Start 04/17/18 at 02:30 Acetaminophen (Tylenol Tab) 650 mg Q6H PRN PO PAIN LEVEL 1-3 OR FEVER Last administered on 04/17/18at 14:10; Admin Dose 650 MG; Start 04/17/18 at 02:30 Acetaminophen/ Hydrocodone Bitart ([place] (5/325)) 1 tab Q6H PRN PO MODERATE PAIN LEVEL 4-6 Last administered on 04/25/18at 21:05; Admin Dose 1 TAB; Start 04/17/18 at 02:30 Acetaminophen/ Hydrocodone Bitart ([place] (5/325)) 2 tab Q6H PRN PO SEVERE PAIN LEVEL 7-10 Last administered on 04/24/18at 03:51; Admin Dose 2 TAB; Start 04/17/18 at 02:30 Zolpidem Tartrate (Ambien) 5 mg HS PRN PO INSOMNIA; Start 04/17/18 at 21:00 Polyethylene Glycol (Miralax) 17 gm BID PO ; Start 04/19/18 at 21:00 Pantoprazole (Protonix Iv) 40 mg BID@06,18 IV Last administered on 04/26/18at 05:29; Admin Dose 40 MG; Start 04/21/18 at 09:30 Piperacillin Sod/ Tazobactam Sod 100 ml @ 200 mls/hr Q8 IVPB Last administered on 04/26/18at 05:29; Admin Dose 200 MLS/HR; Start 04/21/18 at 14:00 Heparin Sodium (Porcine) (Heparin (5000 Units/1ml)) 5,000 unit BID SC Last administered on 04/25/18at 21:10; Admin Dose 5,000 UNIT; Start 04/25/18 at 14:00; Stop 04/26/18 at 09:00 Morphine Sulfate (morphine SULFATE (PF)) 2 mg Q4H PRN IV SEVERE PAIN LEVEL 7- 10; Start 04/26/18 at 06:30; Stop 04/27/18 at 06:30 Meds reviewed: Yes Allergies Coded Allergies: No Known Allergy (Unverified , 04/17/18) Allergies Reviewed: Yes Labs/Studies Labs Reviewed: Reviewed by anesthesiologist Result Diagram: 04/24/18 0502 04/24/18 0502 test: Negative Studies: CXR (Similar patchy bilateral air space opacities representing asymmetric pulmonary edema or infection) Pre-procedure Exam Last vitals Vital Signs Date Temp Pulse Resp B/P (MAP) Pulse Ox O2 O2 Flow FiO2 Time Delivery Rate 04/26/18 98.0 90 16 99/57 (71) 95 Room Air 07:40 04/22/18 21 20:11 Airway: Adequate mouth opening, Adequate thyromental dist Mallampati: Mallampati II Teeth: Normal Lung: Normal Heart: Normal ASA Physical Status ASA physical status: 2 Emergency: None Planned Anesthetic Neuraxial: Spinal Pre-operative Attestations Prior to commencing anesthesia and surgery, the patient was re-evaluated, there was verification of: *The patient's identity *The results of appropriate recent lab work and preoperative vital signs *The above evaluation not changing prior to induction *Anesthetic plan, risk benefits, alternative and complications discussed with patient/family; questions answered; patient/family understands, accepts and wishes to proceed. GRUPO FRAIRE Apr 26, 2018 08:42
[2018-04-26] MEDS: HEPARIN 5,000 UNIT/1 ML VIAL SC SCH (09:00)
[2018-04-26] MEDS: POLYETHYLENE GLYCOL 17 GM PACKET PO SCH ×2 (09:00→21:00)
--- NOTE | 2018-04-26 09:46 | PN ---
Date/Time of Note Date/Time of Note DATE: 04/26/18 TIME: 09:42 Assessment/Plan VTE Prophylaxis Risk score (from Ns)>0 risk: 8 SCD applied (from Ns): No SCD contraindicated: other Pharmacological prophylaxis: heparin Lines/Catheters IV [facility]from [facility] [place] Lock Urinary Cath still in place: No Assessment/Plan Assessment/Plan 17-year-old female who denies any significant past medical history who initially went to [facility] emergency room with right foot pain after she had an exercise related injury. X-ray of the right foot at [facility] emergency room showed trimalleolar fracture. The ER physician tried manipulative reduction with a repeat x-ray showing alignment of the fracture with soft tissue swelling. The patient was transferred to [facility] for further evaluation because of insurance reasons. The patient was taken to the OR on 04/20/2018 for a right foot ORIF. After anesthesia i nduction, the patient went into flash pulmonary edema that necessitated aborting the procedure and transferring the patient to intensive care unit. 1. S/p Acute respiratory failure on 04/20/2018: resolved 2. Trimalleolar fracture of the right foot: surgery today ? 3. Omar Pneumonoia : ?aspiration 4. Dyslipidemia. -Therapeutic lifestyle changes. 5. Fluids, electrolytes, and nutrition. -Regular diet. 6. DVT prophylaxis. -Subcutaneous heparin. 7.-Plan. -Continue supportive care. -Patient is cleared for ORIF of the right foot. -Anesthesiology to contact the scientific illustrator prior to surgery. 1. Acute respiratory failure--2/2 negative pressure pulm amandeep (NPPE). NPPE nesults from generation of high negative intrathoracic pressures needed to overcome an obstructed airway, particularly common in young individuals. 2. Trimalleolar fracture of the right foot. 3. Leukocytosis. Result Diagram: 04/24/18 0502 04/24/18 0502 Subjective 24 Hr Interval Summary Free Text/Dictation no new complaints, ready for surgery hopefully today Exam/Review of Systems Vital Signs Vitals Vital Signs Date Temp Pulse Resp B/P (MAP) Pulse Ox O2 O2 Flow FiO2 Time Delivery Rate 04/26/18 98.0 90 16 99/57 (71) 95 Room Air 07:40 04/22/18 21 20:11 Intake and Output 04/25/18 04/25/18 04/26/18 1414:59 22:59 06:59 IntakeIntake Total 580 ml 840 ml 200 ml BalanceBalance 580 ml 840 ml 200 ml Exam General: A&O x3, answering questions appropriately HEENT: NC/ AT. PERRL. EOM intact Neck: supple CVS: S1, S2, RRR. no murmurs. no pain on chest wall palpation Lungs: CTA b/l. no wheezing or rhonchi Abd: soft, nontender, +BS Ext: moving all extremities skin: no rashes Medications Medications Current Medications IV Flush (NS 3 ml) 3 ml PER PROTOCOL IV Last administered on 04/17/18at 03:15; Admin Dose 3 ML; Start 04/17/18 at 02:30 Ondansetron HCl (Zofran Inj) 4 mg Q6H PRN IV NAUSEA AND/OR VOMITING; Start 04/17/18 at 02:30 Acetaminophen (Tylenol Tab) 650 mg Q6H PRN PO PAIN LEVEL 1-3 OR FEVER Last administered on 04/17/18at 14:10; Admin Dose 650 MG; Start 04/17/18 at 02:30 Acetaminophen/ Hydrocodone Bitart ([place] (5/325)) 1 tab Q6H PRN PO MODERATE PAIN LEVEL 4-6 Last administered on 04/25/18at 21:05; Admin Dose 1 TAB; Start 04/17/18 at 02:30 Acetaminophen/ Hydrocodone Bitart ([place] (5/325)) 2 tab Q6H PRN PO SEVERE PAIN LEVEL 7-10 Last administered on 04/24/18at 03:51; Admin Dose 2 TAB; Start 04/17/18 at 02:30 Zolpidem Tartrate (Ambien) 5 mg HS PRN PO INSOMNIA; Start 04/17/18 at 21:00 Polyethylene Glycol (Miralax) 17 gm BID PO ; Start 04/19/18 at 21:00 Pantoprazole (Protonix Iv) 40 mg BID@06,18 IV Last administered on 04/26/18 05:29; Admin Dose 40 MG; Start 04/21/18 at 09:30 Piperacillin Sod/ Tazobactam Sod 100 ml @ 200 mls/hr Q8 IVPB Last administered on 04/26/18 05:29; Admin Dose 200 MLS/HR; Start 04/21/18 at 14:00 Morphine Sulfate (morphine SULFATE (PF)) 2 mg Q4H PRN IV SEVERE PAIN LEVEL 7- 10; Start 04/26/18 at 06:30; Stop 04/27/18 at 06:30 YUKI GUERIN Apr 26, 2018 09:46
--- NOTE | 2018-04-26 11:05 | NUR ---
Nurse Note; Patient alert and oriented X4, lyric wrap with splint on right lower foot and ankle, patient denies pain at this time, no signs and symptoms of distress, sacrococcyx and heels intact, Left hand IV Hep lock, care assumed from SHANNAN Staley, per Rebeka patient possible having surgery later today for right ankle fracture, no orders yet. Jyoti HEATONN, RN
--- NOTE | 2018-04-26 11:34 | PN ---
DATE: 04/24/2018 SUBJECTIVE: No new complaints. The patient's pain is well controlled. OBJECTIVE: VITAL SIGNS: Temperature 98.4, pulse 91, respirations 16, blood pressure 100/60, saturations 96% on room air. GENERAL: Alert, oriented, no distress. HEENT: Head is normocephalic, pupils equal and reactive. NECK: Supple. CHEST: Clear. CARDIOVASCULAR: S1 and S2 without added sounds or murmurs. ABDOMEN: Soft, nontender. EXTREMITIES: No lower extremity edema. SKIN: Devoid of rash or jaundice. LABORATORY VALUES: Basic metabolic profile, mag and phos within normal range. Dyslipidemia with low HDL, hypertriglyceridemia and hypercholesterolemia. Hemoglobin 11.3, WBC 12,000. IMAGING: Chest x-ray 04/22/2018, bilateral patchy airspace opacities concerning for asymmetric pulmo nary edema or infection. This is known from prior. IMPRESSION: A 17-year-old female with exercise related injury and subsequent trimalleolar fracture t hat failed Emergency Room manipulative reduction, status post failed attempt at open reduction and in ternal fixation when patient developed pulmonary edema and bradycardia in the operating room. Lj huntley managed for the followin. Status post acute respiratory failure 04/20/2018 when anesthesiology attempted intubation. The p atient was on transient ventilator support. She is currently extubated and stable on room air. 2. Status post pulmonary edema with possible infiltrate on chest x-ray suggestive of pneumonia, on a ntibiotic therapy. 3. Trimalleolar fracture, right foot, which for operative repair was stable for surgery. 4. Leukocytosis. 5. Dyslipidemia. DISPOSITION: Continue supportive care, continue antibiotics, discuss with orthopedics for surgical p conchita. Dictated By: YUKI GUERIN MD BA/NTS Conf#: [id number] DID#: [id number] CC: TIGRE MONTANO MD;*EndCC*
--- NOTE | 2018-04-26 12:55 | CONS ---
Date/Time of Note Date/Time of Note DATE: 04/26/18 TIME: 12:54 Assessment/Plan Assessment/Plan Hospital Course IMPRESSION: 1. Preoperative evaluation prior to ankle surgery in a patient that had a surgery aborted for episode of hypotension and bradycardia after induction of anesthesia. NL EF by echo/Neg trop x 3. Ok to proceed to OR at moderate cv risk due to previous event. 2. Tachycardia consistent with sinus tachycardia at this time. Electrocardiogram with inferior T-wave flattening. 3. Ankle fracture secondary to activity. 4. Leukocytosis. 5. Anemia, mild. Recc: -Tele -serial ecg's -continue abx's and f/u cx data -Consider alternative anesthesia given previous event during induction. Appreciate pulmonary input -pnding repeat surgery ? today Result Diagram: 04/24/18 0502 04/24/18 0502 Results 24hrs Laboratory Tests Test 04/26/18 10:53 Magnesium Level 2.3 Consultation Date/Type/Reason Admit Date/Time Apr 17, 2018 at 00:18 Initial Consult Date 04/22/18 Type of Consult cardiology Reason for Consultation preop Requesting Provider: KAYE MILES NUT SHELLER Exam/Review of Systems Vital Signs Vitals Vital Signs Date Temp Pulse Resp B/P (MAP) Pulse Ox O2 O2 Flow FiO2 Time Delivery Rate 04/26/18 98.0 90 16 99/57 (71) 95 Room Air 07:40 04/22/18 21 20:11 Intake and Output 04/25/18 04/25/18 04/26/18 1515:00 23:00 07:00 IntakeIntake Total 580 ml 840 ml 200 ml BalanceBalance 580 ml 840 ml 200 ml Exam Review of Systems: CONSTITUTIONAL: No fevers, chills. PULMONARY: No sob CARDIOVASCULAR: No chest pain/palpitations GASTROINTESTINAL: No nausea/vomiting. GENITOURINARY: No hematuria/dysuria. MUSCULOSKELETAL: No myagias/arthalgias. PSYCHIATRIC: The patient denies depression. NEUROLOGIC: No weakness Constitutional: alert Psych: no complaints Head: normocephalic Neck: supple, jvd (9 cm water) Respiratory: diminished breath sounds (at bases/B) Cardiovascular: regular rate and rhythm Gastrointestinal: soft, non-tender Musculoskeletal: muscle tone (normal) Extremities: edema (none) Neurological: other (No focal deficits) Medications Medications Current Medications IV Flush (NS 3 ml) 3 ml PER PROTOCOL IV Last administered on 04/17/18at 03:15; Admin Dose 3 ML; Start 04/17/18 at 02:30 Ondansetron HCl (Zofran Inj) 4 mg Q6H PRN IV NAUSEA AND/OR VOMITING; Start 04/17/18 at 02:30 Acetaminophen (Tylenol Tab) 650 mg Q6H PRN PO PAIN LEVEL 1-3 OR FEVER Last administered on 04/17/18at 14:10; Admin Dose 650 MG; Start 04/17/18 at 02:30 Acetaminophen/ Hydrocodone Bitart ([place] (5/325)) 1 tab Q6H PRN PO MODERATE PAIN LEVEL 4-6 Last administered on 04/25/18at 21:05; Admin Dose 1 TAB; Start 04/17/18 at 02:30 Acetaminophen/ Hydrocodone Bitart ([place] (5/325)) 2 tab Q6H PRN PO SEVERE PAIN LEVEL 7-10 Last administered on 04/24/18at 03:51; Admin Dose 2 TAB; Start 04/17/18 at 02:30 Zolpidem Tartrate (Ambien) 5 mg HS PRN PO INSOMNIA; Start 04/17/18 at 21:00 Polyethylene Glycol (Miralax) 17 gm BID PO ; Start 04/19/18 at 21:00 Pantoprazole (Protonix Iv) 40 mg BID@06,18 IV Last administered on 04/26/18 05:29; Admin Dose 40 MG; Start 04/21/18 at 09:30 Piperacillin Sod/ Tazobactam Sod 100 ml @ 200 mls/hr Q8 IVPB Last administered on 04/26/18 05:29; Admin Dose 200 MLS/HR; Start 04/21/18 at 14:00 Morphine Sulfate (morphine SULFATE (PF)) 2 mg Q4H PRN IV SEVERE PAIN LEVEL 7- 10; Start 04/26/18 at 06:30; Stop 04/27/18 at 06:30 MIRA MILLER Apr 26, 2018 12:55
--- NOTE | 2018-04-26 14:43 | NUR ---
Nurse Note: Patient picked up for surgery now, patient instructed that she is being transported to surgery and surgical consent signed, she verbalized understanding, patient has been NPO for procedure, no signs and symptoms of distress. Jyoti GARCIA, RN
[2018-04-26] MEDS ORDERED: POLYMYXIN/BACITRACIN 1L IRRIG ONE (15:05)
[2018-04-26] MEDS ORDERED: MIDAZOLAM 1 MG/ML 2 ML INJ ONE ×2 (15:27→15:46)
--- NOTE | 2018-04-26 15:27 | HPN ---
Date/Time of Note Date/Time of Note DATE: 04/26/18 TIME: 15:26 Interval H&P Admission Note Pt. seen H&P reviewed: No system changes CHRISTINE GUNN MD Apr 26, 2018 15:27
[2018-04-26] MEDS ORDERED: morphine SULFATE/PF (10 MG/10 ML) INJ ONE (15:28)
[2018-04-26] MEDS ORDERED: FENTAnyl 50 MCG/ML VIAL ONE ×2 (15:28→16:13)
[2018-04-26] MEDS ORDERED: HYDROCODONE/APAP (5/325) TAB PO PRN (15:30)
[2018-04-26] MEDS ORDERED: PHENYLephrine (100 MCG/ML) 5ML SYG ONE (15:34)
[2018-04-26] MEDS ORDERED: KETAMINE (50 MG/ML) 10 ML VIAL ONE (16:09)
[2018-04-26] MEDS ORDERED: CEFAZOLIN 1 GM INJ ONE (17:37)
[2018-04-26] MEDS ORDERED: ONDANSETRON 4 MG INJ ONE (17:37)
[2018-04-26] MEDS ORDERED: PROPOFOL 20 ML ONE (17:37)
[2018-04-26] MEDS ORDERED: LIDOCAINE 2% (SDV) 5 ML INJ ONE (17:37)
--- NOTE | 2018-04-26 17:50 | NUR ---
RECEIVED FROM OR VIA BED S/P ORIF RT. ANKLE. BELOW KNEE CAST DRY AND INTACT. IV INFUSING IN LT. HAND #22 ANGIOCATH. DENIES PAIN AT PRESENT. S/P DURAMORPH 0.2MG. SENSATION AND MOVEMENT RT. FOOT. AND ELEVATED ON A PILLOW.
--- NOTE | 2018-04-26 17:58 | PAC ---
Date/Time of Note Date/Time of Note DATE: 04/26/18 TIME: 17:57 Post-Anesthesia Notes Post-Anesthesia Note Last documented vital signs Vital Signs Date Temp Pulse Resp B/P (MAP) Pulse Ox O2 O2 Flow FiO2 Time Delivery Rate 04/26/18 98.9 78 16 98/62 (74) 98 Room Air 14:28 04/22/18 21 20:11 Activity: WNL Respiratory function: WNL Cardiovascular function: WNL Mental status: Baseline Pain reasonably controlled: Yes Hydration appropriate: Yes Nausea/Vomiting absent: Yes Comments BP:137/79,pulse:106, spo2:100%, T:98,9 LAURIE MORTON MD Apr 26, 2018 17:58
[2018-04-26] MEDS ORDERED: METOCLOPRAMIDE 10 MG INJ IV PRN (18:00)
[2018-04-26] MEDS ORDERED: FENTAnyl 50 MCG/ML VIAL IV PRN (18:00)
[2018-04-26] MEDS ORDERED: DIPHENHYDRAMINE 50 MG INJ IV PRN (18:00)
[2018-04-26] MEDS ORDERED: NALOXONE (0.4 MG/ML) INJ IV PRN ×2 (18:00→18:30)
[2018-04-26] MEDS ORDERED: ONDANSETRON 4 MG INJ IV PRN (18:00)
[2018-04-26] MEDS ORDERED: HYDROmorphONE 1 MG/5 ML IV SYRINGE IV PRN ×2 (18:00)
[2018-04-26] MEDS ORDERED: MEPERIDINE 25 MG INJ IV PRN (18:00)
--- NOTE | 2018-04-26 18:10 | NUR ---
MOM BROUGHT AT BEDSIDE,
--- NOTE | 2018-04-26 18:22 | SIPON ---
Date/Time of Note Date/Time of Note DATE: 04/26/18 TIME: 18:16 Operative Report Preoperative Diagnosis trimalleolar fracture of Rt. ankle Postoperative Diagnosis same Operation/Procedure Performed o.r.i.f. of trimalleolar fracture of rt, ankle Surgeon see signature line catering administrative assistant none Anesthesia: general Estimated blood loss: 10 - 50 ml's Transfusion Required none Specimen none Grafts/Implants plate & screws Complications none CHRISTINE GUNN MD Apr 26, 2018 18:22
--- NOTE | 2018-04-26 18:25 | NUR ---
REPORT GIVEN TO SHANNAN KEITH
--- NOTE | 2018-04-26 18:49 | NUR ---
TRANSPORTED TO [facility] VIA BED ACCOMPANIED BY TRANSPORT IN STABLE CONDITION. MOVEMENT AND SENSATION TO RT. FOOT. PPC REMAINS DRY AND INTACT. RT. LEG REMAINS ELEVATED ON A PILLOW. SCDS IN PLACE. IV REMAINS PATENT.
[2018-04-26] MEDS: SOD CHLORIDE 0.9% 1,000 ML IV SCH (19:00)
--- NOTE | 2018-04-26 19:41 | NUR ---
PT EVALUATION: This is a 17 yo F pt , s/p ORIF due to trimalleolar fx of the R ankle . Pt had a preoperative evaluation prior to ankle surgery in a patient that had a surgery aborted last 04/21/18 for episode of hypotension and bradycardia after induction of anesthesia , Tachycardia consistent with sinus tachycardia at this time. Electrocardiogram with inferior T-wave flattening. Ankle fracture secondary to activity.Leukocytosis. Anemia, mild. Precautions : fall risks , Touch down weight bearing on RLE due to ORIF of the R ankle PLOF: lives in a H with family , with 2 CLAY . 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 S: denies pain O: Cleared by RN to be seen today . Pt agreebale and motivated to participate . Pt's mother is present the whole tx . VS are stable . currently in 2l/min of NC = 97 percent. attem,pted to wean off O2 , pt's SpO2 in room air 97 percent. Pt perfromed bed mobility MOD IND ( rolling and supine <> sit ) and CGA in all transfers sit <> stand and bed <> chair transfers with vc in weight bearing precautions and safety awareness tech. Pt performed gait using FWW x CGA x 80 ft with vc in walker management , maintaining upright posture and touch down weight bearing. Pt gets tired easily , so pt was instructed with energy conservation tech and given standing breaks . Assisted pt back to bed , endorsed to RN after tx . Pt may transfer with nursing using FWW A: Pt will benefit in continuing skilled PT to maximize IND in all functional mobility and be bale to train to negotiate steps , for safe return to home . Pt will need FWW for home and may go home with assistance as needed when d/c tyo home P : continue with POC.
--- NOTE | 2018-04-26 19:59 | OPR ---
DATE OF OPERATION: 04/26/2018 PREOPERATIVE DIAGNOSIS: Trimalleolar fracture of the right ankle. POSTOPERATIVE DIAGNOSIS: Trimalleolar fracture of the right ankle. PROCEDURE PERFORMED: ORIF of the trimalleolar fracture of the right ankle. ANESTHESIA: Spinal anesthesia. SURGEON: Zach Cobian MD PROCEDURE AND FINDINGS: Under spinal anesthesia, the patient was placed in supine position upon the operating table. A tourniquet was placed over the proximal portion of the right thigh and was inflat ed up to 300 mmHg prior to the procedure. Usual prep and drape was done exposing the right ankle. The first lateral malleolus of the right ankle was approached through the lateral longitudinal incisi on. The lateral malleolus along the fracture site was exposed and because of the delay in the proper treatment, there was a healing going in a less than ideal alignment. With some difficulties, the he aling fracture which was in a less than ideal alignment was taken down and the fractured fragments we re freed again with some difficulties. The exact reduction was carried out and this was internally f ixed with 4-hole plate for lateral malleolus. At this point ankle was evaluated and to my surp rise, the posterior tibial fragment seems to be in acceptable alignment without involving major porti on of the joint. Also lateral malleolus was in a perfectly reduced position and was healing in accep table alignment. Because of this, the surgical procedure was limited to the lateral malleolar fractu re which was reduced in a perfect alignment. After confirming satisfactory alignment of the fracture s and proper alignment of the ankle mortise and after confirming proper position of the fixation susanna ce, it was decided to terminate the procedure. After irrigation and hemostasis, closure of the incis ion was carried out using 0 Vicryl for muscle and fascia and 2-0 Vicryl for subcutaneous tissues. Fi nal skin closure was carried out with Steri-Strips. Because of the nature of the fractures, the enti re right ankle was then immobilized in a short leg cast. The patient tolerated the entire procedure very well and was sent to the recovery room in excellent c ondition. Dictated By: ZACH COBIAN MD IK/NTS Conf#: [id number] DID#: [id number] CC: TIGRE MONTANO MD; YUKI GUERIN MD; MIRA MILLER MD;*EndCC*
--- NOTE | 2018-04-27 00:23 | NUR ---
AOx4. VSS. Room Air. Denies Pain. NS @ 100mL/hr. Emesis x (clear liquid), zofran given. Ambulatory with walker. Cast to LLE, CMS intact. Voiding. BM 04/25/17.
[2018-04-27] MEDS: SOD CHLORIDE 0.9% 1,000 ML IV SCH (01:07)
[2018-04-27 02:07] VITALS: BP 113/71; PULSE 106; RESP 16
[2018-04-27] MEDS: HYDROCODONE/APAP (5/325) TAB PO PRN ×3 (05:12→19:50)
[2018-04-27] MEDS: PANTOPRAZOLE 40 MG INJ IV SCH ×2 (05:12→17:50)
[2018-04-27] MEDS: PIPER-TAZO 3.375 GM IV (PMX) 100 ML IVPB SCH (05:13)
[2018-04-27 07:18] VITALS: BP 98/58; PULSE 108; RESP 18
--- NOTE | 2018-04-27 08:11 | PN ---
Date/Time of Note Date/Time of Note DATE: 04/27/18 TIME: 08:07 Assessment/Plan VTE Prophylaxis Risk score (from Ns)>0 risk: 2 SCD applied (from Ns): Yes Pharmacological prophylaxis: heparin Lines/Catheters IV Catheter Type (from [facility]): Peripheral IV Urinary Cath still in place: No Assessment/Plan Assessment/Plan A 17-year-old female with exercise related injury and subsequent trimalleolar fracture that failed Emergency Room manipulative reduction, status post failed attempt at open reduction and internal fixation when patient developed pulmonary edema and bradycardia in the operating room 05/21/17. Currently managed for the followin. Status post acute respiratory failure 04/20/2018 when anesthesiology attempted intubation. The patient was on transient ventilator support. She is currently extubated and stable on room air. 2. Status post pulmonary edema with possible infiltrate on chest x-ray suggestive of pneumonia, on antibiotic therapy. 3. Trimalleolar fracture, right foot, s/p ORIF 04/26/17. 4. Leukocytosis. 5. Dyslipidemia. DISPOSITION: Continue routine postop care, discuss discharge goals with Ortho. ?PT Result Diagram: 04/27/18 0605 04/27/18 0605 Results 24hrs Laboratory Tests Test 04/26/18 10:53 04/27/18 06:05 Magnesium Level 2.3 White Blood Count 11.4 H Red Blood Count 3.26 L Hemoglobin 10.1 L Hematocrit 31.0 L Mean Corpuscular Volume 95.1 Mean Corpuscular Hemoglobin 31.0 Mean Corpuscular Hemoglobin Concent 32.6 Red Cell Distribution Width 11.9 Platelet Count 343 Mean Platelet Volume 9.7 Immature Granulocytes % 0.700 H Neutrophils % 69.3 Lymphocytes % 19.5 Monocytes % 9.5 Eosinophils % 0.6 Basophils % 0.4 Nucleated Red Blood Cells % 0.0 Immature Granulocytes # 0.080 H Neutrophils # 7.9 H Lymphocytes # 2.2 Monocytes # 1.1 H Eosinophils # 0.1 Basophils # 0.1 Nucleated Red Blood Cells # 0.0 Sodium Level 140 Potassium Level 3.9 Chloride Level 102 Carbon Dioxide Level 29 Anion Gap 9 Blood Urea Nitrogen 6 L Creatinine 0.61 Est Glomerular Filtrat Rate mL/min > 60 Glucose Level 116 Calcium Level 9.2 Subjective 24 Hr Interval Summary Free Text/Dictation no new complaints, mild pain Exam/Review of Systems Vital Signs Vitals Vital Signs Date Temp Pulse Resp B/P (MAP) Pulse Ox O2 O2 Flow FiO2 Time Delivery Rate 04/27/18 98.7 108 18 98/58 (71) 95 Room Air 07:18 04/26/18 3.0 18:36 Intake and Output 04/26/18 04/26/18 04/27/18 1515:00 23:00 07:00 IntakeIntake Total 100 ml 800 ml 450 ml OutputOutput Total 30 ml BalanceBalance 100 ml 770 ml 450 ml Exam General: A&O x3, answering questions appropriately HEENT: NC/ AT. PERRL. EOM intact Neck: supple CVS: S1, S2, RRR. no murmurs. no pain on chest wall palpation Lungs: CTA b/l. no wheezing or rhonchi Abd: soft, nontender, +BS Ext: Right leg in a long dressing to the mid femur level skin: no rashes Medications Medications Current Medications IV Flush (NS 3 ml) 3 ml PER PROTOCOL IV Last administered on 04/17/18at 03:15; Admin Dose 3 ML; Start 04/17/18 at 02:30 Ondansetron HCl (Zofran Inj) 4 mg Q6H PRN IV NAUSEA AND/OR VOMITING Last administered on 04/26/18 23:03; Admin Dose 4 MG; Start 04/17/18 at 02:30 Acetaminophen (Tylenol Tab) 650 mg Q6H PRN PO PAIN LEVEL 1-3 OR FEVER Last administered on 04/17/18at 14:10; Admin Dose 650 MG; Start 04/17/18 at 02:30 Acetaminophen/ Hydrocodone Bitart ([place] (5/325)) 1 tab Q6H PRN PO MODERATE PAIN LEVEL 4-6 Last administered on 04/25/18 21:05; Admin Dose 1 TAB; Start 04/17/18 at 02:30 Acetaminophen/ Hydrocodone Bitart ([place] (5/325)) 2 tab Q6H PRN PO SEVERE PAIN LEVEL 7-10 Last administered on 04/27/18 05:12; Admin Dose 2 TAB; Start 04/17/18 at 02:30 Zolpidem Tartrate (Ambien) 5 mg HS PRN PO INSOMNIA; Start 04/17/18 at 21:00 Polyethylene Glycol (Miralax) 17 gm BID PO ; Start 04/19/18 at 21:00 Pantoprazole (Protonix Iv) 40 mg BID@06,18 IV Last administered on 04/27/18at 05:12; Admin Dose 40 MG; Start 04/21/18 at 09:30 Piperacillin Sod/ Tazobactam Sod 100 ml @ 200 mls/hr Q8 IVPB Last administered on 04/27/18at 05:13; Admin Dose 200 MLS/HR; Start 04/21/18 at 14:00 Miscellaneous Information (* Miscellaneous Pharmacy Order) DURAMORPH: 0.2 MG SPI... GIVEN NEURAXIAL XX ; Start 04/26/18 at 18:00 Naloxone HCl (Narcan) 0.2 mg Q2M PRN IV DECREASED REPIRATORY RATE; Start 04/26/18 at 18:30; Stop 04/27/18 at 18:29 Morphine Sulfate (morphine SULFATE (PF)) 2 mg Q3H PRN IV SEVERE PAIN LEVEL 7- 10; Start 04/26/18 at 15:30 Acetaminophen/ Hydrocodone Bitart ([place] (5/325)) 1 tab Q3H PRN PO PAIN LEVEL 4-6; Start 04/26/18 at 15:30 Sodium Chloride 1,000 ml @ 100 mls/hr Q10H IV Last administered on 04/27/18at 01:07; Admin Dose 100 MLS/HR; Start 04/26/18 at 15:26 Imaging Imaging DATE OF OPERATION: 04/26/2018 PREOPERATIVE DIAGNOSIS: Trimalleolar fracture of the right ankle. POSTOPERATIVE DIAGNOSIS: Trimalleolar fracture of the right ankle. PROCEDURE PERFORMED: ORIF of the trimalleolar fracture of the right ankle. ANESTHESIA: Spinal anesthesia. SURGEON: MD APOORVA Ryan BOLATITO M. Apr 27, 2018 08:11
[2018-04-27] MEDS: POLYETHYLENE GLYCOL 17 GM PACKET PO SCH (08:13)
[2018-04-27] MEDS: morphine SULFATE/PF (2 MG/2 ML) SYG IV PRN ×3 (09:00→18:01)
--- NOTE | 2018-04-27 09:11 | NUR ---
PT NOTE Therapy day number 2 Subjective Current complaint of pain Pain Scale NUMERIC Pain Intensity 5 (0-10) Patient Stated Goal for Pain Relief 0 (0-10) Pain Level Comment R foot Transfer Training Start Time 09:11 Supine to Sit Modified Independent Transfer Sit to Stand Ability Supervised Bed Mobility Sit to Supine Modified Independent Transfer Training End Time 09:21 Total Transfer Training Time 10 min (8-127) Gait Training Start Time 09:21 Gait Assist Levels Stand by Assist Assistive Devices Front Wheel Walker Ambulation Distance 100 feet Additional Gait Comments hopping , swing to gait Gait Training End Time 09:35 Total Gait Training Treatment Time 14 min (8-127) Weight Bearing Assessment Label Right Lower Extremity Additional Weight Bearing Comments touch down weight bearing Static Sitting Balance Good Dynamic Sitting Balance Good Standing Static Balance Fair Dynamic Standing Balance Fair Additional Balance Assessments Comments FWW Safety Judgement Good Activity Tolerance Good Equipment Present A pump IV pump Post Treatment Pain Intensity 5 0-10 Variance Documentation SEE BELOW AND PT NOTE Total Treament Time 24 min (8-127) Total Minutes 24 Total Units 2 PT Technical Record Comment PT NOTE S: Pt stated, "They just gave me pain medication so my pain is like a 5." Agreeable for PT and cleared per SHANNAN Middleton. O: Received pt in semi-fowlers, alert. Bed mobility Kiran. Applied gait belt at EOB. STS to FWW Supervised. Gait training performed w/FWW 100' SBA. Noted hop to gait, NWB to RLE (Pt's precaution per MD TDWB), and swing to gait w/no LOB/buckling. Pt required VCs/TCs to maintain distance from AD and to not lift AD during ambulation and when making turns. Pt verbalized and demonstrated w/fair return. Stair training performed w/FWW on platform step x 2 CGA. Pt experienced 2 LOB, 1 requiring ModA for recovery and 2nd LOB requiring Lamin recovery. Assisted pt back to room BTB. Left pt in comfort position, call light/phone within reach, bed alarmed, and all needs met. SHANNAN Middleton informed of pt's status. A: Good tolerance to tx. Pt showed no signs of distress or SOB during or after tx. No c/o dizziness or nausea throughout tx. Pt reported mild fatigue post tx. Transfers and gait assistance/distance improved compared to previous tx. P: Continue POC and progress as tolerated.
--- NOTE | 2018-04-27 13:45 | NUR ---
PT NOTE Therapy day number 2 Subjective Current complaint of pain Pain Scale NUMERIC Pain Intensity 6 (0-10) Patient Stated Goal for Pain Relief 0 (0-10) Pain Level Comment R foot, premedicated Transfer Training Start Time 13:45 Supine to Sit Independent Transfer Sit to Stand Ability Supervised Bed Mobility Sit to Supine Independent Transfer Training End Time 13:59 Total Transfer Training Time 14 min (8-127) Gait Training Start Time 13:59 Gait Assist Levels Stand by Assist Assistive Devices Front Wheel Walker Ambulation Distance 150 feet Additional Gait Comments hopping , swing to gait Gait Training End Time 14:15 Total Gait Training Treatment Time 16 min (8-127) Weight Bearing Assessment Label Right Lower Extremity Additional Weight Bearing Comments touch down weight bearing Static Sitting Balance Good Dynamic Sitting Balance Good Standing Static Balance Fair plus Dynamic Standing Balance Fair Additional Balance Assessments Comments FWW Safety Judgement Good Activity Tolerance Good Equipment Present IV pump Post Treatment Pain Intensity 6 0-10 Variance Documentation SEE BELOW AND PT NOTE Total Treament Time 30 min (8-127) Total Minutes 30 Total Units 2 PT Technical Record Comment PT NOTE S: Pt stated, "My foot hurts, but they gave me pain medication not that long ago." Agreeable for PT and cleared per SHANNAN Middleton. O: Received pt in semi-fowlers, alert. Bed mobility Independent. Applied gait belt at EOB. STS to FWW Supervised. Gait training performed w/FWW 150' SBA/Supervised. Noted hop to gait, NWB to RLE (Pt's precaution per TDWB), and swing to gait w/no LOB/buckling. Pt required occasionally VCs/TCs to maintain distance from AD and to not lift AD during ambulation and when making turns. Pt verbalized and demonstrated w/fair return. Assisted pt back to room BTB. Left pt in comfort position, call light/phone within reach, bed alarmed, and all needs met. SHANNAN Middleton informed of pt's status. A: Good tolerance to tx. Pt showed no signs of distress or SOB during or after tx. No c/o dizziness or nausea throughout tx. Pt reported mild BUE fatigue and L hip pain w/WB only post tx. Gait distance improved compared to previous tx. P: Continue POC and progress as tolerated.
--- NOTE | 2018-04-27 14:06 | CONS ---
Date/Time of Note Date/Time of Note DATE: 04/27/18 TIME: 14:04 Assessment/Plan Assessment/Plan Hospital Course IMPRESSION: 1. Preoperative evaluation prior to ankle surgery in a patient that had a surgery aborted for episode of hypotension and bradycardia after induction of anesthesia. NL EF by echo/Neg trop x 3. Ok to proceed to OR at moderate cv risk due to previous event. Mow pod#1 s/p LE surgery 2. Tachycardia consistent with sinus tachycardia at this time. Electrocardiogram with inferior T-wave flattening. 3. Ankle fracture secondary to activity. 4. Leukocytosis. 5. Anemia, mild. Recc: -On med-surg -serial ecg's -continue abx's and f/u cx data -pain control Result Diagram: 04/27/18 0605 04/27/18 0605 Results 24hrs Laboratory Tests Test 04/27/18 06:05 White Blood Count 11.4 H Red Blood Count 3.26 L Hemoglobin 10.1 L Hematocrit 31.0 L Mean Corpuscular Volume 95.1 Mean Corpuscular Hemoglobin 31.0 Mean Corpuscular Hemoglobin Concent 32.6 Red Cell Distribution Width 11.9 Platelet Count 343 Mean Platelet Volume 9.7 Immature Granulocytes % 0.700 H Neutrophils % 69.3 Lymphocytes % 19.5 Monocytes % 9.5 Eosinophils % 0.6 Basophils % 0.4 Nucleated Red Blood Cells % 0.0 Immature Granulocytes # 0.080 H Neutrophils # 7.9 H Lymphocytes # 2.2 Monocytes # 1.1 H Eosinophils # 0.1 Basophils # 0.1 Nucleated Red Blood Cells # 0.0 Sodium Level 140 Potassium Level 3.9 Chloride Level 102 Carbon Dioxide Level 29 Anion Gap 9 Blood Urea Nitrogen 6 L Creatinine 0.61 Est Glomerular Filtrat Rate mL/min > 60 Glucose Level 116 Calcium Level 9.2 Consultation Date/Type/Reason Admit Date/Time Apr 17, 2018 at 00:18 Initial Consult Date 04/22/18 Type of Consult cardiology Reason for Consultation preop Requesting Provider: KAYE MILES [employer] Exam/Review of Systems Vital Signs Vitals Vital Signs Date Temp Pulse Resp B/P (MAP) Pulse Ox O2 O2 Flow FiO2 Time Delivery Rate 04/27/18 98.7 108 18 98/58 (71) 95 Room Air 07:18 04/26/18 3.0 18:36 Intake and Output 04/26/18 04/26/18 04/27/18 1515:00 23:00 07:00 IntakeIntake Total 100 ml 800 ml 450 ml OutputOutput Total 30 ml BalanceBalance 100 ml 770 ml 450 ml Exam Review of Systems: CONSTITUTIONAL: No fevers, chills. PULMONARY: No sob CARDIOVASCULAR: No chest pain/palpitations GASTROINTESTINAL: No nausea/vomiting. GENITOURINARY: No hematuria/dysuria. MUSCULOSKELETAL: pain in leg s/p surgery PSYCHIATRIC: The patient denies depression. NEUROLOGIC: No weakness Constitutional: alert, oriented Psych: no complaints Head: normocephalic ENMT: mucosa pink and moist Neck: supple, jvd (9 cm water) Respiratory: diminished breath sounds (at bases/B) Cardiovascular: regular rate and rhythm Gastrointestinal: soft, non-tender Musculoskeletal: muscle tone (normal) Extremities: other (leg cast) Neurological: other (No focal deficts) Medications Medications Current Medications IV Flush (NS 3 ml) 3 ml PER PROTOCOL IV Last administered on 04/17/18at 03:15; Admin Dose 3 ML; Start 04/17/18 at 02:30 Ondansetron HCl (Zofran Inj) 4 mg Q6H PRN IV NAUSEA AND/OR VOMITING Last administered on 04/26/18 23:03; Admin Dose 4 MG; Start 04/17/18 at 02:30 Acetaminophen (Tylenol Tab) 650 mg Q6H PRN PO PAIN LEVEL 1-3 OR FEVER Last administered on 04/17/18at 14:10; Admin Dose 650 MG; Start 04/17/18 at 02:30 Acetaminophen/ Hydrocodone Bitart ([place] (5/325)) 1 tab Q6H PRN PO MODERATE PAIN LEVEL 4-6 Last administered on 04/25/18 21:05; Admin Dose 1 TAB; Start 04/17/18 at 02:30 Acetaminophen/ Hydrocodone Bitart ([place] (5/325)) 2 tab Q6H PRN PO SEVERE PAIN LEVEL 7-10 Last administered on 04/27/18 11:56; Admin Dose 2 TAB; Start 04/17/18 at 02:30 Zolpidem Tartrate (Ambien) 5 mg HS PRN PO INSOMNIA; Start 04/17/18 at 21:00 Pantoprazole (Protonix Iv) 40 mg BID@06,18 IV Last administered on 04/27/18at 05:12; Admin Dose 40 MG; Start 04/21/18 at 09:30 Miscellaneous Information (* Miscellaneous Pharmacy Order) DURAMORPH: 0.2 MG SPI... GIVEN NEURAXIAL XX ; Start 04/26/18 at 18:00 Naloxone HCl (Narcan) 0.2 mg Q2M PRN IV DECREASED REPIRATORY RATE; Start 04/26/18 at 18:30; Stop 04/27/18 at 18:29 Morphine Sulfate (morphine SULFATE (PF)) 2 mg Q3H PRN IV SEVERE PAIN LEVEL 7-10 Last administered on 04/27/18at 13:07; Admin Dose 2 MG; Start 04/26/18 at 15:30 Acetaminophen/ Hydrocodone Bitart ([place] (5/325)) 1 tab Q3H PRN PO PAIN LEVEL 4-6; Start 04/26/18 at 15:30 Polyethylene Glycol (Miralax) 17 gm DAILY PO ; Start 04/28/18 at 09:00 Amoxicillin/ Clavulanate Potassium (Augmentin) 875 mg BID PO ; Start 04/27/18 at 21:00; Stop 04/30/18 at 20:59 MIRA MILLER Apr 27, 2018 14:06
[2018-04-27 14:48] VITALS: BP 109/66; PULSE 112; RESP 18
--- NOTE | 2018-04-27 18:40 | NUR ---
end shift report: pt is stable . pain med given as ordered.pt seen by physial therapy.pt walked with walker around the unit. pt diet advanced and tolerated well. call light within reach . will follow up
[2018-04-27 19:40] VITALS: BP 103/61; PULSE 116; RESP 16
[2018-04-27] MEDS: AMOXICILLIN/CLAV 875 MG TAB PO SCH (20:52)
[2018-04-28] MEDS: morphine SULFATE/PF (2 MG/2 ML) SYG IV PRN (01:15)
[2018-04-28 02:13] VITALS: BP 105/68; PULSE 109; RESP 16
--- NOTE | 2018-04-28 05:14 | NUR ---
SHIFT NOTES: PT STABLE THIS SHIFT. NOT IN DISTRESS. DUE MEDS GIVEN. COMPLAINED OF RT LEG PAIN, MEDICATED ACCORDINGLY. VERBALIZED RELIEF ON RE-ASSESSMENT. FALL PRECAUTION MAINTAINED. RT LEG ELEVATED ON PILLOWS. FAMILY AT THE BEDSIDE. WILL ENDORSE ACCORDINGLY.
[2018-04-28] MEDS: PANTOPRAZOLE 40 MG INJ IV SCH (06:12)
[2018-04-28] MEDS: HYDROCODONE/APAP (5/325) TAB PO PRN ×2 (06:17→14:03)
[2018-04-28 07:39] VITALS: BP 107/67; PULSE 85; RESP 18
[2018-04-28] MEDS: AMOXICILLIN/CLAV 875 MG TAB PO SCH (08:56)
[2018-04-28] MEDS ORDERED: POLYETHYLENE GLYCOL 17 GM PACKET PO SCH (09:00)
--- NOTE | 2018-04-28 09:12 | NUR ---
PT NOTE Therapy day number 3 Subjective Denies pain Pain Scale NUMERIC Pain Intensity 0 (0-10) Patient Stated Goal for Pain Relief 0 (0-10) Pain Level Comment DENIES PAIN, PREMEDICATED Transfer Training Start Time 09:12 Supine to Sit Independent Transfer Sit to Stand Ability Modified Independent Bed Mobility Sit to Supine Independent Transfer Training End Time 09:22 Total Transfer Training Time 10 min (8-127) Gait Training Start Time 09:22 Gait Assist Levels Supervised Assistive Devices Front Wheel Walker Ambulation Distance 170 feet Additional Gait Comments hopping , swing to gait Gait Training End Time 09:37 Total Gait Training Treatment Time 15 min (8-127) Weight Bearing Assessment Label Right Lower Extremity Additional Weight Bearing Comments touch down weight bearing Stair Climbing Ability Stand by Assist Number of Stairs 1 Stairs Additional Stairs Assist Comments platform step x 1 using FWW w/VCs for sequence. No LOB Static Sitting Balance Good Dynamic Sitting Balance Good Standing Static Balance Good Dynamic Standing Balance Fair plus Additional Balance Assessments Comments FWW Safety Judgement Good Activity Tolerance Good Equipment Present IV pump Post Treatment Pain Intensity 0 0-10 Variance Documentation SEE BELOW AND PT NOTE Total Treament Time 25 min (8-127) Total Minutes 25 Total Units 2 PT Technical Record Comment PT NOTE S: Pt stated, "I am doing fine. They gave me pain medication so my foot is okay right now." Agreeable for PT and cleared per SHANNAN Middleton. O: Received pt in semi-fowlers, alert w/family present in room. Bed mobility Independent. Applied gait belt at EOB. STS to FWW Kiran. Gait training performed w/FWW 170' Kiran. Noted hop to gait, NWB to RLE (Pt's precaution per TDWB), intermittent fast yasmin, and swing to gait w/no LOB/buckling. Pt required Min VCs/TCs to maintain distance from AD, slow yasmin, and to not lift AD during ambulation and when making turns. Pt verbalized and demonstrated w/fair return. Stair training performed w/FWW on platform step x 2 SBA w/no LOB. Assisted pt back to room BTB. Left pt in comfort position, call light/phone within reach, bed alarmed, and all needs met. SHANNAN Middleton informed of pt's status. A: Good tolerance to tx. Pt showed no signs of distress or SOB during or after tx. No c/o dizziness or nausea throughout tx. Bed mobility, transfers, and gait assistance/distance improved compared to previous tx. Pt is demonstrating improvement w/overall mobility. P: Continue POC and progress as tolerated.
--- NOTE | 2018-04-28 13:34 | PDOCDIS ---
Discharge Instructions DIAGNOSIS Discharge Diagnosis Ankle fracture CONDITION [id number] Patient Condition: [id number] Stable HOME CARE INSTRUCTIONS: [id number] Special Diet: [id number] SOFT DIET FOLLOW UP/APPOINTMENTS Follow-up Plan Call the office of Dr Leonor Cobian (orthopedics) to make an appointment in 2 weeks. His office number is JASPAL SUERO MD Apr 28, 2018 13:34
--- NOTE | 2018-04-28 13:37 | DS ---
Date/Time of Note Date/Time of Note DATE: 04/28/18 TIME: 13:36 Discharge Summary Admission/Discharge Info Admit Date/Time Apr 17, 2018 at 00:18 Discharge Date/Time Discharge Diagnosis Ankle fracture Patient Condition: Stable Hospital Course A 17-year-old female presented with exercise related injury and subsequent trimalleolar fracture that failed Emergency Room manipulative reduction. She then went to OR for attempt at open reduction and internal fixation when patient developed pulmonary edema and bradycardia in the operating room 05/21/17. She was monitored for this and recovered nicely without intervention. Cleared by pulmonology and cardiology. Returned to OR and Dr Cobian performed ORIF. Cast placed. She was discharged per Dr Cobian to further care as outpatient Follow-up Plan Call the office of Dr Leonor Cobian (orthopedics) to make an appointment in 2 weeks. His office number is Primary Care Provider Joelle Baldwin MD Pending Labs Laboratory Tests Test 04/28/18 06:17 04/28/18 06:18 White Blood Count 11.5 10^3/ul (4.8-10.8) Red Blood Count 3.47 10^6/ul (4.20-5.40) Hemoglobin 10.7 g/dl (12.0-16.0) Hematocrit 33.0 % (37.0-47.0) Mean Corpuscular Volume 95.1 fl (72.0-104.0) Mean Corpuscular Hemoglobin 30.8 pg (29.0-33.0) Mean Corpuscular 32.4 g/dl (32.0-37.0) Hemoglobin Concent Red Cell Distribution Width 12.1 % (11.5-14.5) Platelet Count 398 10^3/UL (140-415) Mean Platelet Volume 9.4 fl (7.4-10.4) Immature Granulocytes % 1.000 % (0.001-0.429) Neutrophils % 60.9 % (30.0-74.0) Lymphocytes % 24.1 % (18.0-55.0) Monocytes % 11.5 % (0.0-13.0) Eosinophils % 2.1 % (0.0-7.0) Basophils % 0.4 % (0.0-2.0) Nucleated Red Blood Cells % 0.0 /100WBC (0.0-0.0) Immature Granulocytes # 0.110 10^3/ul (0.0-0.031) Neutrophils # 7.0 10^3/ul (1.6-7.5) Lymphocytes # 2.8 10^3/ul (0.8-2.9) Monocytes # 1.3 10^3/ul (0.3-0.9) Eosinophils # 0.2 10^3/ul (0.0-0.5) Basophils # 0.1 10^3/ul (0.0-0.1) Nucleated Red Blood Cells # 0.0 10^3/ul (0.0-0.0) Sodium Level 141 mmol/L (135-144) Potassium Level 3.6 mmol/L (3.5-5.1) Chloride Level 104 mmol/L (97-110) Carbon Dioxide Level 29 mmol/L (21-31) Anion Gap 8 (5-13) Blood Urea Nitrogen < 2 mg/dl (7-20) Creatinine 0.63 mg/dl (0.44-1.00) Est Glomerular Filtrat > 60 mL/min (>60) Rate mL/min Glucose Level 105 mg/dl (70-220) Calcium Level 9.3 mg/dl (8.4-10.2) JASPAL SUERO MD Apr 28, 2018 13:37
[2018-04-28 14:10] VITALS: BP 106/61; PULSE 99; RESP 18
[2018-04-28] MEDS ORDERED: morphine LIQ (10 MG/5 ML) CUP PO PRN (15:00)
--- NOTE | 2018-04-28 15:00 | NUR ---
PT NOTE Therapy day number 3 Subjective Denies pain Pain Scale NUMERIC Pain Intensity 0 (0-10) Patient Stated Goal for Pain Relief 0 (0-10) Pain Level Comment DENIES PAIN Transfer Training Start Time 15:00 Supine to Sit Independent Transfer Sit to Stand Ability Modified Independent Bed Mobility Sit to Supine Independent Transfer Training End Time 15:15 Total Transfer Training Time 15 min (8-127) Gait Training Start Time 15:15 Gait Assist Levels Supervised Assistive Devices Front Wheel Walker Ambulation Distance 220 feet Additional Gait Comments hopping , swing to gait Gait Training End Time 15:30 Total Gait Training Treatment Time 15 min (8-127) Weight Bearing Assessment Label Right Lower Extremity Additional Weight Bearing Comments touch down weight bearing Static Sitting Balance Good Dynamic Sitting Balance Good Standing Static Balance Good Dynamic Standing Balance Good Additional Balance Assessments Comments FWW Safety Judgement Good Activity Tolerance Good Equipment Present IV pump Post Treatment Pain Intensity 0 0-10 Variance Documentation SEE BELOW AND PT NOTE Total Treament Time 30 min (8-127) Total Minutes 30 Total Units 2 PT Technical Record Comment PT NOTE S: Pt stated, "No pain right now. I am fine." Agreeable for PT and cleared per SHANNAN Middleton. O: Received pt in semi-fowlers, alert w/family present in room. Bed mobility Independent. Applied gait belt at EOB. STS to FWW Kiran. Gait training performed w/FWW 220'Supervised. Noted hop to gait, NWB to RLE (Pt's precaution per TDWB), swing to gait, and intermittent fast yasmin however no LOB/buckling. Pt required Min VCs to slow yasmin for safe ambulation. Pt verbalized and demonstrated w/fair return. Assisted pt back to room BTB. Left pt in comfort position, call light/phone within reach, bed alarmed, and all needs met. SHANNAN Middleton informed of pt's status. A: Good tolerance to tx. Pt showed no signs of distress or SOB during or after tx. No c/o dizziness, nausea, or pain throughout tx. Pt reported mild BUE fatigue and L hip pain w/WB only post tx. Gait distance improved compared to previous tx. P: Continue POC and progress as tolerated.
--- NOTE | 2018-04-28 16:27 | NUR ---
pt discharge home as ordered.left leg cast is dry and clean. iv removed. walker delivered to the patient.all discharge instruction given and pt understood. family at bed side.pt will follow up with Dr. Cobian in 2 weeks
== END 2018-04-28 16:25 | disposition home or self-care (01) | DRG 492 ==
LOC: 2NE 04-17 00:18 → ICU 04-20 18:16 → 6WM 04-23 00:51 → 2NE 04-24 15:48
PROVIDERS: ADMIT Internal Medicine; ATTEND Family Medicine
PROC: 5A1935Z Respiratory Ventilation, Less than 24 Consecutive Hours (ICD-10-PCS; 2018-04-20)
PROC: 0BH17EZ Insertion of Endotracheal Airway into Trachea, Via Natural or Artificial Opening (ICD-10-PCS; 2018-04-20)
PROC: 5A12012 Performance of Cardiac Output, Single, Manual (ICD-10-PCS; 2018-04-20)
PROC: 05HM33Z Insertion of Infusion Device into Right Internal Jugular Vein, Percutaneous Approach (ICD-10-PCS; 2018-04-20)
PROC: 03HB33Z Insertion of Infusion Device into Right Radial Artery, Percutaneous Approach (ICD-10-PCS; 2018-04-20)
PROC: 0BP1XDZ Removal of Intraluminal Device from Trachea, External Approach (ICD-10-PCS; 2018-04-21)
PROC: 0QSJ04Z Reposition Right Fibula with Internal Fixation Device, Open Approach (ICD-10-PCS; principal; 2018-04-26 14:30)
DX: S82.851A Displaced trimalleolar fracture of right lower leg, initial encounter for closed fracture (principal); J96.01 Acute respiratory failure with hypoxia; J69.0 Pneumonitis due to inhalation of food and vomit; I26.99 Other pulmonary embolism without acute cor pulmonale; D64.9 Anemia, unspecified; D72.829 Elevated white blood cell count, unspecified; E78.5 Hyperlipidemia, unspecified; I95.9 Hypotension, unspecified; R00.1 Bradycardia, unspecified; R00.0 Tachycardia, unspecified; X58.XXXA Exposure to other specified factors, initial encounter; Y93.43 Activity, gymnastics; Z53.09 Procedure and treatment not carried out because of other contraindication
CPT/HCPCS: 36600; 71045; 73700; 80048; 80053; 80061; 80307; 81001; 82803; 83735; 83880; 84100; 84484; 84703; 85025; 85610; 85730; 90686; 93005; 93306; 93970; 94002; 94003; 94770; 97116; 97161; 97162; 97530; C1713; C9113; J0690; J1100; J1644; J1940; J2250; J2274; J2370; J2405; J2543; J2710; J2795; J3010; J3475; J3480; J7030